=== PATIENT | female | born 1960 | race Caucasian/White ===

== ENCOUNTER → 2018-01-20 11:23 | Outpatient (CLI) | payer OTHER, SELFPAY ==
[2018-01-20 12:25] LABS: Alanine Aminotransferase 28 IU/L (9-52); Albumin 4.3 g/dL (3.5-5.0); Albumin Globulin Ratio 1.7 (1.0-2.8); Alkaline Phosphatase 69 U/L (38-126); Aspartate Aminotransferase 30 IU/L (14-36); BUN Creatinine Ratio 22.9 (6-22); Bilirubin Total 0.6 mg/dL (0.2-1.3); Blood Urea Nitrogen 16 mg/dL (7-17); Calcium 9.5 mg/dL (8.4-10.2); Carbon Dioxide 33 mmol/L (22-32); Chloride 103 mmol/L (98-107); Cholesterol 172 mg/dL (140-199); Estimated Glomerular Filt Rate > 60.0 mL/min (>60); Globulin 2.5 g/dL (1.7-4.1); Glucose 107 mg/dL (70-100); HDL Cholesterol 78 mg/dL (40-60); HEMOLYSIS < 15 (0-50); LDL Cholesterol Calculated 80 mg/dL (<100); Potassium 5.3 mmol/L (3.4-5.1); Sodium 142 mmol/L (137-145); Total Protein 6.8 g/dL (6.3-8.2); Triglycerides 69 mg/dL (35-150)
[2018-01-20 12:40] LABS: Free T3, Triiodothyronine Free 3.65 pg/mL (2.77-5.27); Free T4, Direct Thyroxine 0.73 ng/dL (0.78-2.19)
[2018-01-20 12:54] LABS: Thyroid Stimulating Hormone 1.14 uIU/mL (0.47-4.68)
== END ==
PROVIDERS: PCP Physician Assistant; Visit Provider Physician Assistant
DX: E03.9 Hypothyroidism, unspecified (principal); Z13.220 Encounter for screening for lipoid disorders; Z13.6 Encounter for screening for cardiovascular disorders
CPT/HCPCS: 36415; 80053; 80061; 84439; 84443; 84481

== ENCOUNTER → 2018-05-15 13:04 | Outpatient (CLI) | payer OTHER, SELFPAY ==
--- NOTE | 2018-05-16 16:18 | DIET.PN ---
Met for initial nutrition consultation. Pt desires assistance w/losing wt. Has tried many diets - lost a lot of wt and regained it back. Tried Wt Watchers, NutriSystem, etc. States MD suggested keto diet, but pt states she gets horrible hot flashes when eating high fat diet. Usual diet: Very little red meat - tries to eat more fish. Cheese is downfall. Eats a lot of whole foods - whole grains, vegs, etc. Does have few glasses of wine in [place] - plans to cut down on this. Exercise: Walks 1.5 hours most days; plans to join light resistance training class. Dx: Obesity Ht: 5'5 Wt 215# my scale BMI: 36 Wt Goal: 160# (Suggested 170# as this is wt pt has been at as an adult) Body comp Analysis ([employer]): (activity - ) body fat: 38.4% 82.5 fat# LBM: 132.4# Assessment: Pt appears knowledgeable of nutrition needs; wt loss techniques - needs motivation/assistant track coach and accountability. Barriers to wt control include emotional eating (olena snacking/prolonged dinner), living alone and eating w/TV vs having a sit down dinner. Intervention: Provided ed on healthy plate model, portioning foods, nutr balance. Discussed pros/cons of various diet techniques - keto, low carb. Encouraged to follow low carb plan Plan: Keep food/activity record (phone [place]) F/U 2 wk (15min check in). Body comp analysis in 4-6wk
== END ==
PROVIDERS: PCP Physician Assistant; Visit Provider Physician Assistant
DX: E66.9 Obesity, unspecified (principal)
CPT/HCPCS: 97802

== ENCOUNTER → 2018-05-29 13:33 | Outpatient (CLI) | payer OTHER, SELFPAY ==
--- NOTE | 2018-05-29 14:36 | DIET.PN ---
Addendum entered by Urszula Paul 06/06/18 15:45: Original Note: Met for first f/u consultation. Thuy reports she has tracked food intake on phone [place]; it helps. Has been eating </= 1700 kcals daily, very low carb- though not counting grams. States she's only hungry sometimes; eating planned snacks. Does not eat when hungry unless it's time to eat. Dx: obesity Wt: 210# Exercise: Added resistance class 2/week (45 ea) and continues to walk 1.5hr daily. Behavior changes: Working on not eating in front of TV - this is a challenge. Decreased wine & cheese intake. Assessment: Appears to be off to a good start. Lost 5# for 2.5#/wk loss. Intervention: Encouraged to become aware of hunger and satiety; to honor her hunger and eat when hungry; differentiating between hunger and appetite. Introduced to 15min rule. Plan: F/u 3 wks. body comp analysis
== END ==
PROVIDERS: PCP Physician Assistant; Visit Provider Physician Assistant
DX: E66.9 Obesity, unspecified (principal)
CPT/HCPCS: 97803

== ENCOUNTER → 2018-07-03 14:03 | Outpatient (CLI) | payer OTHER, SELFPAY ==
--- NOTE | 2018-07-03 14:05 | DI.MG.S_ITS ---
BILATERAL DIGITAL SCREENING MAMMOGRAM 3D/2D WITH CAD: 07/03/2018 CLINICAL: Routine screening. Family history of breast cancer. Comparison is made to exam dated: 12/27/2016 mammogram - [facility]. There are scattered fibroglandular elements in both breasts. Current study was also evaluated with a Computer Aided Detection (CAD) system. There are benign calcifications in both breasts. No significant masses, calcifications, or other findings are seen in either breast. There has been no significant interval change. IMPRESSION: There is no mammographic evidence of malignancy. A 1 year screening mammogram is recommended. This exam was interpreted at Station ID: [id number]. NOTE: For mammograms, a report in lay terms will be sent to the patient. Approximately 15% of breast malignancies will not be visualized mammographically. In the management of a palpable breast mass, a negative mammogram must not discourage biopsy of a clinically suspicious lesion. Electronically Signed By: Roland andre/alyce:07/03/2018 17:45:33 letter sent: Normal Exam ACR BI-RADS Category 2: Benign Finding(s) 3342F
== END ==
PROVIDERS: PCP Physician Assistant; Visit Provider Physician Assistant
DX: Z12.31 Encounter for screening mammogram for malignant neoplasm of breast (principal); Z80.3 Family history of malignant neoplasm of breast; Z78.0 Asymptomatic menopausal state; E28.39 Other primary ovarian failure; Z87.891 Personal history of nicotine dependence
CPT/HCPCS: 77063; 77067; 77080

== ENCOUNTER → 2018-12-13 10:37 | Outpatient (CLI) | payer SELFPAY ==
--- NOTE | 2018-12-13 10:43 | DI.US.S_ITS ---
PROCEDURE: US PELVIC COMPLETE INDICATIONS: BLOATING TECHNIQUE: Real-time scanning was performed of the pelvic organs, with image documentation. Additional endovaginal scanning was necessary due to incomplete visualization of the adnexal and endometrial structures by transabdominal scanning. COMPARISON: None. FINDINGS: Transabdominal scanning: Limited scanning through the kidneys shows no hydronephrosis. No pathologic free abdominal or pelvic fluid. Endovaginal scanning: Uterus: Uterus is normal in size at 5.8 x 3.8 x 2.4 cm. The endometrium measures 5.1 mm in combined thickness. 7 mm intramural fibroid. Ovaries: Ovaries are normal bilaterally measuring 1.7 x 1.4 x 1.1 cm on the right and 1.9 x 1.3 x 0.6 cm on the left. Minimal urinary bladder postvoid residual estimated at 11.0 cc. IMPRESSION: No source for pelvic bloating identified. Subcentimeter intramural fibroid. Dictated by: Jose DIAZ Interpreted: Kusum Ventura MD on 12/13/2018 at 12:54 Approved by: Kusum Ventura MD, PhD on 12/13/2018 at 14:45
== END ==
PROVIDERS: PCP Physician Assistant; Visit Provider Physician Assistant
DX: R14.0 Abdominal distension (gaseous) (principal); D25.1 Intramural leiomyoma of uterus; R12 Heartburn; R39.15 Urgency of urination; R68.81 Early satiety; R35.0 Frequency of micturition
CPT/HCPCS: 76856

== ENCOUNTER → 2020-05-19 11:14 | Outpatient (CLI) | payer OTHER, SELFPAY ==
[2020-05-19 13:13] LABS: Hematocrit 39.1 % (36-46); Hemoglobin 12.8 g/dL (12.0-16.0); Mean Corpuscular HGB Conc 32.7 % (30-36); Mean Corpuscular Hemoglobin 30.5 PG (26-34); Mean Corpuscular Volume 93.5 fL (80-100); Platelet Count 287 X10^3/uL (150-400); Red Blood Cell Count 4.18 X10^6/uL (4.0-5.2); Red Cell Distribution Width 14.3 % (11.6-14.8)
[2020-05-19 13:32] LABS: Alanine Aminotransferase 30 IU/L (<35); Albumin 4.4 g/dL (3.5-5.0); Albumin Globulin Ratio 1.6 (1.0-2.8); Alkaline Phosphatase 60 U/L (38-126); Aspartate Aminotransferase 36 IU/L (14-36); BUN Creatinine Ratio 26.8 (6-22); Bilirubin Total 0.8 mg/dL (0.2-1.3); Blood Urea Nitrogen 19 mg/dL (7-17); Calcium 9.5 mg/dL (8.4-10.2); Carbon Dioxide 35 mmol/L (22-32); Chloride 101 mmol/L (98-107); Cholesterol 196 mg/dL (140-199); Estimated Glomerular Filt Rate > 60.0 mL/min (>60); Globulin 2.8 g/dL (1.7-4.1); Glucose 106 mg/dL (80-110); HDL Cholesterol 71 mg/dL (40-60); HEMOLYSIS < 15 (0-50); LDL Cholesterol Calculated 98 mg/dL (<100); Potassium 4.3 mmol/L (3.4-5.1); Sodium 139 mmol/L (137-145); Total Protein 7.2 g/dL (6.3-8.2); Triglycerides 135 mg/dL (35-150)
[2020-05-19 15:49] LABS: TSH w/ Reflex to FT4 1.11 uIU/mL (0.47-4.68)
== END ==
PROVIDERS: PCP Registered Nurse Diabetes Educator; Referring Provider Registered Nurse Diabetes Educator; Visit Provider Registered Nurse Diabetes Educator
DX: Z00.00 Encounter for general adult medical examination without abnormal findings (principal); E03.9 Hypothyroidism, unspecified; R73.01 Impaired fasting glucose
CPT/HCPCS: 36415; 80053; 80061; 83036; 84443; 85027

== ENCOUNTER → 2020-05-26 14:11 | Outpatient (CLI) | payer OTHER, SELFPAY ==
--- NOTE | 2020-05-26 14:13 | DI.RAD.S_ITS ---
PROCEDURE: XR HIP W PEL IF DONE JULIO C 3TO4V COMPARISON: None. INDICATIONS: bilateral hip pain, no trauma FINDINGS: AP view of the pelvis and two views of the right and left hip show no fracture or dislocation. Both hips have minimal degenerative changes. Soft tissues are normal. IMPRESSION: Minimal degenerative changes of both hips. No acute abnormality. Dictated by: Minh Jarrett M.D. on 05/26/2020 at 14:32 Approved by: Minh Jarrett M.D. on 05/26/2020 at 14:34
== END ==
PROVIDERS: PCP Registered Nurse Diabetes Educator; Referring Provider Registered Nurse Diabetes Educator; Visit Provider Registered Nurse Diabetes Educator
DX: M25.551 Pain in right hip (principal); M25.552 Pain in left hip
CPT/HCPCS: 73522

== ENCOUNTER → 2020-06-16 16:23 | Outpatient (CLI) | payer OTHER, SELFPAY ==
--- NOTE | 2020-06-16 16:24 | DI.MG.S_ITS ---
BILATERAL DIGITAL SCREENING MAMMOGRAM 3D/2D WITH CAD: 06/16/2020 CLINICAL: Routine screening. Family history of breast cancer. Comparison is made to exams dated: 07/03/2018 mammogram, 12/27/2016 mammogram - [facility], and 10/18/2014 mammogram - [facility]. There are scattered fibroglandular elements in both breasts. Current study was also evaluated with a Computer Aided Detection (CAD) system. There are diffuse calcifications in both breasts. No significant masses, calcifications, or other findings are seen in either breast. There has been no significant interval change. IMPRESSION: BENIGN There is no mammographic evidence of malignancy. A 1 year screening mammogram is recommended. This exam was interpreted at Station ID: [id number]. NOTE: For mammograms, a report in lay terms will be sent to the patient. Approximately 15% of breast malignancies will not be visualized mammographically. In the management of a palpable breast mass, a negative mammogram must not discourage biopsy of a clinically suspicious lesion. Electronically Signed By: Roland rivera/:06/16/2020 17:51:37 letter sent: Normal Exam ACR BI-RADS Category 2: Benign Finding(s) 3342F
== END ==
PROVIDERS: PCP Registered Nurse Diabetes Educator; Referring Provider Registered Nurse Diabetes Educator; Visit Provider Registered Nurse Diabetes Educator
DX: Z12.31 Encounter for screening mammogram for malignant neoplasm of breast (principal); Z80.3 Family history of malignant neoplasm of breast
CPT/HCPCS: 77063; 77067

== ENCOUNTER → 2020-12-27 16:31 | Outpatient (CLI) | payer OTHER, SELFPAY ==
[2020-12-27 17:13] LABS: COVID19 -Nasal RAPID Negative (Negative)
== END ==
PROVIDERS: PCP Registered Nurse Diabetes Educator; Referring Provider Physician Assistant; Visit Provider Physician Assistant
DX: R05 Cough (principal); Z20.822 Contact with and (suspected) exposure to COVID-19
CPT/HCPCS: 87635

== ENCOUNTER → 2020-12-27 17:00 | Outpatient (CLI) | payer OTHER, SELFPAY ==
--- NOTE | 2020-12-27 17:02 | DI.RAD.S_ITS ---
PROCEDURE: XR CHEST 2V INDICATIONS: cough, pt concerned for PNA TECHNIQUE: 2 views of the chest were acquired. COMPARISON: None. FINDINGS: Surgical changes and devices: None. Lungs and pleura: Lungs are clear. No pleural effusions or pneumothorax. Mediastinum: Mediastinal contours are normal. Heart size is normal. Bones and chest wall: No suspicious bony abnormalities. Age-appropriate bony degenerative changes are seen. Accentuated thoracic kyphosis is seen. Soft tissues appear unremarkable. IMPRESSION: Clear lungs, without focal infiltrates. If there is clinical concern for a developing pulmonary process, a short-term followup chest series (with PA and lateral views, performed in deep inspiration) is suggested for further evaluation. Dictated by: Evens Arias M.D. on 12/27/2020 at 16:14 Approved by: Evens Arias M.D. on 12/27/2020 at 16:15
== END ==
PROVIDERS: PCP Registered Nurse Diabetes Educator; Referring Provider Physician Assistant; Visit Provider Physician Assistant
DX: R05 Cough (principal); Z20.822 Contact with and (suspected) exposure to COVID-19
CPT/HCPCS: 71046; 87635

== ENCOUNTER → 2021-02-10 08:32 | Outpatient (CLI) | payer OTHER, SELFPAY ==
[2021-02-10 09:16] LABS: Hematocrit 38.9 % (36-46); Hemoglobin 12.7 g/dL (12.0-16.0); Mean Corpuscular HGB Conc 32.6 % (30-36); Mean Corpuscular Hemoglobin 30.4 PG (26-34); Mean Corpuscular Volume 93.3 fL (80-100); Platelet Count 265 X10^3/uL (150-400); Red Blood Cell Count 4.17 X10^6/uL (4.0-5.2); Red Cell Distribution Width 14.6 % (11.6-14.8); White Blood Cell Count 6.7 X10^3/uL (4.5-11.0)
[2021-02-10 09:44] LABS: HEMOLYSIS 31 (0-50); Iron 62 ug/dL (37-170)
[2021-02-10 09:49] LABS: Alanine Aminotransferase 25 IU/L (<35); Albumin 4.2 g/dL (3.5-5.0); Albumin Globulin Ratio 1.7 (1.0-2.8); Alkaline Phosphatase 82 U/L (38-126); Aspartate Aminotransferase 33 IU/L (14-36); BUN Creatinine Ratio 30.2 (6-22); Bilirubin Total 0.4 mg/dL (0.2-1.3); Blood Urea Nitrogen 19 mg/dL (7-17); Calcium 9.2 mg/dL (8.4-10.2); Carbon Dioxide 30 mmol/L (22-32); Chloride 104 mmol/L (98-107); Estimated Glomerular Filt Rate > 60.0 mL/min (>60); Globulin 2.5 g/dL (1.7-4.1); Glucose 113 mg/dL (80-110); HEMOLYSIS 22 (0-50); Potassium 5.1 mmol/L (3.4-5.1); Sodium 139 mmol/L (137-145); Total Protein 6.7 g/dL (6.3-8.2)
[2021-02-10 10:01] LABS: Percent Iron Saturation 20 % (15-50); Total Iron Binding Capacity 315 ug/dL (265-497); Transferrin 247 mg/dL (206-381)
[2021-02-10 10:18] LABS: TSH w/ Reflex to FT4 1.52 uIU/mL (0.47-4.68)
[2021-02-10 10:26] LABS: Ferritin 37 ng/mL (11-264)
[2021-02-10 10:40] LABS: Vitamin B12 630 pg/mL (239-931)
== END ==
PROVIDERS: PCP Registered Nurse Diabetes Educator; Referring Provider Registered Nurse Diabetes Educator; Visit Provider Registered Nurse Diabetes Educator
DX: R53.83 Other fatigue (principal)
CPT/HCPCS: 36415; 80053; 82306; 82607; 82728; 83540; 83550; 84443; 85027

== ENCOUNTER → 2021-07-01 08:38 | Outpatient (CLI) | payer OTHER, SELFPAY ==
[2021-07-01 09:38] LABS: Hematocrit 40.3 % (36-46); Hemoglobin 13.2 g/dL (12.0-16.0); Mean Corpuscular HGB Conc 32.8 % (30-36); Mean Corpuscular Hemoglobin 29.7 PG (26-34); Mean Corpuscular Volume 90.4 fL (80-100); Platelet Count 275 X10^3/uL (150-400); Red Blood Cell Count 4.45 X10^6/uL (4.0-5.2); Red Cell Distribution Width 14.3 % (11.6-14.8); White Blood Cell Count 5.1 X10^3/uL (4.5-11.0)
[2021-07-01 09:55] LABS: Erythrocyte Sedimentation Rate 8 MM/HR (0-20)
[2021-07-01 11:14] LABS: HEMOLYSIS < 15 (0-50); Iron 64 ug/dL (37-170)
[2021-07-01 11:20] LABS: Alanine Aminotransferase 22 IU/L (<35); Albumin 4.3 g/dL (3.5-5.0); Albumin Globulin Ratio 1.7 (1.0-2.8); Alkaline Phosphatase 69 U/L (38-126); Aspartate Aminotransferase 30 IU/L (14-36); BUN Creatinine Ratio 20.5 (6-22); Bilirubin Total 0.5 mg/dL (0.2-1.3); Blood Urea Nitrogen 16 mg/dL (7-17); C-Reactive Protein Quant < 0.5 mg/dL (<1.0); Calcium 9.2 mg/dL (8.4-10.2); Carbon Dioxide 31 mmol/L (22-32); Chloride 104 mmol/L (98-107); Estimated Glomerular Filt Rate > 60.0 mL/min (>60); Globulin 2.6 g/dL (1.7-4.1); Glucose 114 mg/dL (80-110); HEMOLYSIS < 15 (0-50); Potassium 4.8 mmol/L (3.4-5.1); Sodium 141 mmol/L (137-145); Total Protein 6.9 g/dL (6.3-8.2)
[2021-07-01 11:27] LABS: Percent Iron Saturation 21 % (15-50); Total Iron Binding Capacity 304 ug/dL (265-497); Transferrin 239 mg/dL (206-381)
[2021-07-01 11:32] LABS: Vitamin D 25 Hydroxy (D3) 21.6 ng/mL (30.0-100.0)
[2021-07-01 11:51] LABS: TSH w/ Reflex to FT4 1.26 uIU/mL (0.47-4.68)
[2021-07-01 11:53] LABS: Ferritin 31 ng/mL (11-264)
[2021-07-01 12:08] LABS: Vitamin B12 > 1000 pg/mL (239-931)
[2021-07-01 13:26] LABS: Appearance Urine UA CLEAR; Bilirubin Urine UA NEGATIVE (NEGATIVE); Color Urine UA YELLOW; Glucose Urine UA NEGATIVE (Negative); Ketones Urine UA NEGATIVE (NEGATIVE); Leukocyte Esterase Urine UA TRACE (NEGATIVE); Nitrite Urine UA NEGATIVE (Negative); Occult Blood Urine UA TRACE-INTACT (Negative); Protein Urine UA NEGATIVE (Negative); Specific Gravity Urine UA 1.015 (1.000-1.035); Urobilinogen Urine UA 0.2 E.U./dL (0.2)
[2021-07-01 13:34] LABS: Bacteria Urine None Seen; Culture Indicated Urine Cult Not Indicated; RBC Urine None Seen (0-5/HPF); Urine Comments Microscopic Normal; WBC Urine None Seen (0-5/HPF)
[2021-07-02 07:40] LABS: Adrenocorticotropic Hormone 19.6 pg/mL (7.2-63.3)
[2021-07-03 17:48] LABS: ANA Screen, IFA Negative (.)
== END ==
PROVIDERS: PCP Registered Nurse Diabetes Educator; Referring Provider Registered Nurse Diabetes Educator; Visit Provider Registered Nurse Diabetes Educator
DX: R53.83 Other fatigue (principal)
CPT/HCPCS: 36415; 80053; 81001; 82024; 82306; 82533; 82607; 82728; 83540; 83550; 84443; 85027; 85651; 86038; 86140

== ENCOUNTER → 2021-07-04 11:53 | Outpatient (CLI) | payer OTHER, SELFPAY | PROVIDERS: PCP Registered Nurse Diabetes Educator; Visit Provider Nurse Practitioner Family | DX: R53.83 Other fatigue (principal) | CPT/HCPCS: 87086 ==

== ENCOUNTER → 2021-07-04 14:57 | Outpatient (CLI) | payer OTHER, SELFPAY ==
--- NOTE | 2021-07-04 15:00 | DI.MG.S_ITS ---
BILATERAL DIGITAL SCREENING MAMMOGRAM 3D/2D WITH CAD: 07/04/2021 CLINICAL: Routine screening. Comparison is made to exams dated: 06/16/2020 mammogram, 07/03/2018 mammogram, and 12/27/2016 mammogram - [facility]. There are scattered fibroglandular elements in both breasts. Current study was also evaluated with a Computer Aided Detection (CAD) system. There are benign calcifications in both breasts. No significant masses, calcifications, or other findings are seen in either breast. There has been no significant interval change. IMPRESSION: BENIGN There is no mammographic evidence of malignancy. A 1 year screening mammogram is recommended. This exam was interpreted at Station ID: [id number]. NOTE: For mammograms, a report in lay terms will be sent to the patient. Approximately 15% of breast malignancies will not be visualized mammographically. In the management of a palpable breast mass, a negative mammogram must not discourage biopsy of a clinically suspicious lesion. Electronically Signed By: Stephanie phillips/alyce:07/06/2021 09:09:57 letter sent: Normal Exam ACR BI-RADS Category 2: Benign Finding(s) 3342F
== END ==
PROVIDERS: PCP Registered Nurse Diabetes Educator; Referring Provider Registered Nurse Diabetes Educator; Visit Provider Registered Nurse Diabetes Educator
DX: Z12.31 Encounter for screening mammogram for malignant neoplasm of breast (principal)
CPT/HCPCS: 77063; 77067

== ENCOUNTER → 2021-10-12 09:59 | Outpatient (CLI) | payer OTHER, SELFPAY ==
[2021-10-12 12:32] LABS: Free T3, Triiodothyronine Free 3.67 pg/mL (2.77-5.27); Free T4, Direct Thyroxine 1.14 ng/dL (0.78-2.19)
[2021-10-12 12:46] LABS: Thyroid Stimulating Hormone 0.751 uIU/mL (0.47-4.68)
== END ==
PROVIDERS: PCP Registered Nurse Diabetes Educator; Referring Provider Registered Nurse Diabetes Educator; Visit Provider Registered Nurse Diabetes Educator
DX: E03.9 Hypothyroidism, unspecified (principal); R53.83 Other fatigue
CPT/HCPCS: 36415; 82306; 84439; 84443; 84481

== ENCOUNTER → 2021-11-16 09:55 | Outpatient (CLI) | payer OTHER, SELFPAY | PROVIDERS: Family Provider Registered Nurse Diabetes Educator; PCP Registered Nurse Diabetes Educator; Referring Provider Registered Nurse Diabetes Educator; Visit Provider Registered Nurse Diabetes Educator ==

== ENCOUNTER → 2021-11-18 10:08 | Outpatient (CLI) | payer OTHER, SELFPAY ==
--- NOTE | 2021-11-18 10:08 | DI.NM.S_ITS ---
PROCEDURE: NM BALJIT PERF SPECT REST & STR Rest and exercise myocardial perfusion SPECT with gated imaging and ejection fraction RADIOPHARMACEUTICAL: 25.9 mCi Tc-99m sestamibi IV at rest and 25.8 mCi Tc-99m sestamibi IV at peak exercise. A two day-protocol was performed. INDICATIONS: eval dyspnea on exertion, atypical CP TECHNIQUE: Radiopharmaceutical was injected at peak stress test, and also at rest. SPECT images were obtained. SPECT myocardial perfusion images were displayed in short axis, horizontal long axis, and vertical long axis views. Gated images were reviewed using WaveCheck software. COMPARISON: None. CARDIAC STRESS: A standard Leonid treadmill exercise tolerance test was performed by the patient under the supervision of an attending staff. The patient exercised for 5 minutes and 48 seconds; functional aerobic impairment (EDDIE) is +15%. Hemodynamic data: There is normal blood pressure and heart rate response to exercise stress. Patient achieved 98% of maximum predicted heart rate at peak exercise. Symptoms: Patient denied chest pain during exercise. EKG: No diagnostic EKG changes of ischemia; no ectopy. FINDINGS: Raw data: There is good myocardial labeling by radiotracer. No significant motion artifacts. Wptt-fm-ehjbh ratio is 0.35 (normal is less than 0.38 for sestamibi tracer, and less than 0.50 for thallium tracer). Left ventricle function: Gated images demonstrate normal left ventricle wall thickening. No segmental wall motion abnormality. No transient ischemic dilation; TID is 1.08 (normal less than 1.3). The left ventricle resting end-diastolic volume is 104 mL. Left ventricle stress ejection fraction is 64%; normal values are above 45%. Myocardial perfusion: There is normal distribution of activity in the left and right ventricular myocardium. No fixed or reversible perfusion defects. IMPRESSION: Low risk, normal treadmill nuclear stress test 1) No perfusion evidence of ischemia or infarction. 2) Normal left ventricular size, wall motion, and systolic function (EF post stress 64%). 3) No diagnostic ST changes with exercise. 4) No angina during the study. 5) Mildly reduced exercise tolerance (7.0 METs, EDDIE +15%). Target heart rate achieved. Appropriate BP response to exercise. Dictated by: Romeo Stovall MD on 11/19/2021 at 16:45 Approved by: Romeo Stovall MD on 11/19/2021 at 16:47
[2021-11-18 12:07] LABS: COVID19 -Nasal RAPID Negative (Negative)
--- NOTE | 2021-11-19 09:09 | P.PCN_ITS ---
Cardiac Stress Test Report Referral & Results Date Patient Seen: 11/19/21 Time Patient Seen: 09:00 Requesting provider: Juanpablo Urbano Indication: Dyspnea on exertion Rest ECG: Normal sinus rhythm Procedure Note: Today, following both written and verbal informed consent, the patient was exercised according to a standard Leonid protocol. The patient went for a total of 5 minutes 48 seconds achieving a maximum heart rate of 156 maximum systolic blood pressure of 190. This is approximately 7.0 METs. Exercise was terminated at this point because of fatigue. Patient was also given Cardiolite through a previously started Hep-Lock IV by the nuclear equipment sales engineer approximately 1 minute prior to the cessation of exercise. Exaggerated hemodynamic response to exercise. [address] deviations in inferior leads that resolved rapidly with rest. Average exercise capacity for sedentary person at her age, but FA I +15% on active scale. No signs or symptoms of angina. No other change in rhythm. Impression: Intermediate probability for ischemia. Perfusion imaging pending. Please note: Actual ECG tracings can be found in the PACS system.
== END ==
PROVIDERS: Family Provider Registered Nurse Diabetes Educator; PCP Registered Nurse Diabetes Educator; Referring Provider Registered Nurse Diabetes Educator; Visit Provider Registered Nurse Diabetes Educator
DX: R06.00 Dyspnea, unspecified (principal); R07.89 Other chest pain; Z20.822 Contact with and (suspected) exposure to COVID-19
CPT/HCPCS: 78452; 87635; 93016; 93017; 93018; A9502

== ENCOUNTER → 2021-12-10 10:10 | Outpatient (CLI) | payer OTHER, SELFPAY ==
--- NOTE | 2021-12-10 10:11 | DI.RAD.S_ITS ---
PROCEDURE: XR CHEST 2V INDICATIONS: shortness of breath on exertion TECHNIQUE: 2 views of the chest were acquired. COMPARISON: [facility], CR, XR CHEST 2V, 12/27/2020, 16:58. FINDINGS: Surgical changes and devices: None. Lungs and pleura: Lungs are clear. No pleural effusions or pneumothorax. Mediastinum: Mediastinal contours are normal. Heart size is normal. Bones and chest wall: No suspicious bony abnormalities. Soft tissues appear unremarkable. IMPRESSION: Normal chest plain films. Dictated by: Evens Arias M.D. on 12/10/2021 at 11:48 Approved by: Evens Arias M.D. on 12/10/2021 at 11:49
== END ==
PROVIDERS: Family Provider Registered Nurse Diabetes Educator; PCP Registered Nurse Diabetes Educator; Referring Provider Registered Nurse Diabetes Educator; Visit Provider Registered Nurse Diabetes Educator
DX: R06.09 Other forms of dyspnea (principal)
CPT/HCPCS: 71046

== ENCOUNTER → 2022-03-24 10:08 | Outpatient (CLI) | payer OTHER, SELFPAY ==
[2022-03-24 12:43] LABS: Occult Blood 1 Negative (Negative)
[2022-03-24 12:44] LABS: Occult Blood 2 Negative (Negative); Occult Blood 3 Negative (Negative)
== END ==
PROVIDERS: Family Provider Registered Nurse Diabetes Educator; PCP Registered Nurse Diabetes Educator; Referring Provider Registered Nurse Diabetes Educator; Visit Provider Registered Nurse Diabetes Educator
DX: K92.1 Melena (principal)
CPT/HCPCS: 82270

== ENCOUNTER → 2022-07-16 08:09 | Outpatient (CLI) | payer OTHER, SELFPAY ==
[2022-07-16 09:47] LABS: Hematocrit 37.7 % (36-46); Hemoglobin 12.3 g/dL (12.0-16.0); Mean Corpuscular HGB Conc 32.7 % (30-36); Mean Corpuscular Volume 91.8 fL (80-100); Platelet Count 271 X10^3/uL (150-400); Red Blood Cell Count 4.11 X10^6/uL (4.0-5.2); Red Cell Distribution Width 15.2 % (11.6-14.8); White Blood Cell Count 6.4 X10^3/uL (4.5-11.0)
[2022-07-16 09:57] LABS: Hemoglobin A1C% w Est Avg Glu 5.8 % (4.0-6.0)
[2022-07-16 10:33] LABS: Alanine Aminotransferase 36 IU/L (<35); Albumin 4.2 g/dL (3.5-5.0); Albumin Globulin Ratio 1.6 (1.0-2.8); Alkaline Phosphatase 88 U/L (38-126); Aspartate Aminotransferase 30 IU/L (14-36); BUN Creatinine Ratio 23.6 (6-22); Bilirubin Total 0.4 mg/dL (0.2-1.3); Blood Urea Nitrogen 17 mg/dL (7-17); Calcium 8.9 mg/dL (8.4-10.2); Carbon Dioxide 32 mmol/L (22-32); Chloride 100 mmol/L (98-107); Cholesterol 182 mg/dL (140-199); Estimated Glomerular Filt Rate > 60 mL/min (>60); Globulin 2.7 g/dL (1.7-4.1); Glucose 105 mg/dL (80-110); HDL Cholesterol 61 mg/dL (40-60); HEMOLYSIS < 15 (0-50); LDL Cholesterol Calculated 90 mg/dL (<100); Potassium 4.7 mmol/L (3.4-5.1); Sodium 140 mmol/L (137-145); Total Protein 6.9 g/dL (6.3-8.2); Triglycerides 157 mg/dL (35-150)
[2022-07-16 10:59] LABS: TSH w/ Reflex to FT4 0.91 uIU/mL (0.47-4.68)
--- NOTE | 2022-07-16 15:51 | DI.MG.S_ITS ---
BILATERAL DIGITAL SCREENING MAMMOGRAM 3D/2D WITH CAD: 07/16/2022 CLINICAL: Routine screening. Family history of breast cancer. Comparison is made to exams dated: 07/04/2021 mammogram, 06/16/2020 mammogram, 07/03/2018 mammogram, and 12/27/2016 mammogram - [facility]. There are scattered areas of fibroglandular density in both breasts (category b / 25%-50% glandular tissue). Current study was also evaluated with a Computer Aided Detection (CAD) system. There are benign calcifications in both breasts. No significant masses, calcifications, or other findings are seen in either breast. There has been no significant interval change. IMPRESSION: BENIGN There is no mammographic evidence of malignancy. A 1 year screening mammogram is recommended. Based on the Tyrer Cuzick model (a risk assessment model) the patient's lifetime risk is 6.1% and her 10 year risk is 2.7%. According to the ACR, ACS, and NCCN guidelines, an annual breast MRI exam along with mammogram is recommended if the patient's lifetime risk is 20% or greater. This exam was interpreted at Station ID: [id number]. NOTE: For mammograms, a report in lay terms will be sent to the patient. Approximately 15% of breast malignancies will not be visualized mammographically. In the management of a palpable breast mass, a negative mammogram must not discourage biopsy of a clinically suspicious lesion. Electronically Signed By: Emely perry/alyce:07/16/2022 17:38:35 letter sent: Normal Exam ACR BI-RADS Category 2: Benign Finding(s) 3342F
== END ==
PROVIDERS: Family Provider Registered Nurse Diabetes Educator; PCP Registered Nurse Diabetes Educator; Referring Provider Registered Nurse Diabetes Educator; Visit Provider Registered Nurse Diabetes Educator
DX: Z12.31 Encounter for screening mammogram for malignant neoplasm of breast (principal); E03.9 Hypothyroidism, unspecified; R73.01 Impaired fasting glucose; Z80.3 Family history of malignant neoplasm of breast
CPT/HCPCS: 36415; 77063; 77067; 80053; 80061; 83036; 84443; 85027

== ENCOUNTER → 2022-07-26 16:40 | Outpatient (CLI) | payer OTHER, SELFPAY ==
[2022-07-26 18:08] LABS: Iron 101 ug/dL (37-170)
[2022-07-26 18:16] LABS: C-Reactive Protein Quant 0.8 mg/dL (<1.0)
[2022-07-26 18:20] LABS: Total Iron Binding Capacity 349 ug/dL (265-497)
[2022-07-26 18:49] LABS: Ferritin 24 ng/mL (11-264)
== END ==
PROVIDERS: Family Provider Registered Nurse Diabetes Educator; PCP Registered Nurse Diabetes Educator; Referring Provider Internal Medicine Sleep Medicine; Visit Provider Internal Medicine Sleep Medicine
DX: G25.81 Restless legs syndrome (principal); E83.10 Disorder of iron metabolism, unspecified
CPT/HCPCS: 36415; 82728; 83540; 83550; 86140

== ENCOUNTER → 2022-10-20 09:29 | Outpatient (CLI) | payer OTHER, SELFPAY ==
[2022-10-20 11:38] LABS: HEMOLYSIS < 15 (0-50); Iron 66 ug/dL (37-170)
[2022-10-20 11:41] LABS: C-Reactive Protein Quant 0.8 mg/dL (<1.0)
[2022-10-20 11:43] LABS: Alanine Aminotransferase 35 IU/L (<35); Albumin Globulin Ratio 1.5 (1.0-2.8); Alkaline Phosphatase 76 U/L (38-126); Aspartate Aminotransferase 30 IU/L (14-36); Bilirubin Total 0.4 mg/dL (0.2-1.3); Bilirubin Unconjugated 0.4 mg/dL (0.0-1.1); Globulin 2.6 g/dL (1.7-4.1); HEMOLYSIS < 15 (0-50); Total Protein 6.6 g/dL (6.3-8.2)
[2022-10-20 11:51] LABS: Percent Iron Saturation 21 % (15-50); Total Iron Binding Capacity 307 ug/dL (265-497); Transferrin 208 mg/dL (206-381)
[2022-10-20 12:14] LABS: Ferritin 37 ng/mL (11-264)
== END ==
PROVIDERS: Family Provider Registered Nurse Diabetes Educator; PCP Registered Nurse Diabetes Educator; Referring Provider Internal Medicine Sleep Medicine; Visit Provider Internal Medicine Sleep Medicine
DX: G25.81 Restless legs syndrome (principal); E83.10 Disorder of iron metabolism, unspecified; R74.8 Abnormal levels of other serum enzymes
CPT/HCPCS: 36415; 80076; 82728; 83540; 83550; 86140

== ENCOUNTER → 2022-11-12 15:42 | Outpatient (CLI) | payer OTHER, SELFPAY ==
--- NOTE | 2022-11-12 15:43 | DI.US.S_ITS ---
PROCEDURE: US ABDOMEN LIMITED INDICATIONS: ELEVATED ALT TECHNIQUE: Real-time scanning was performed of the abdominal and retroperitoneal organs, with image documentation. COMPARISON: None. FINDINGS: Liver: The liver measures 18.6 cm in length and demonstrates increased echogenicity. Focal fatty sparing is noted at the gallbladder fossa. Gallbladder: The gallbladder wall measures 3.5 mm in diameter. No stones, sludge, pericholecystic fluid, or sonographic Rolle sign. Biliary ducts: Intrahepatic bile ducts are non-dilated. Extrahepatic bile duct caliber measures 5.5 mm. Normal is 6-7 mm or less in diameter, or 10 mm or less post-cholecystectomy. Pancreas: Pancreas is poorly characterized. IMPRESSION: 1. Increased hepatic echogenicity noted likely related to fatty infiltration of the liver but other sources of hepatocellular disease cannot be excluded. 2. No cholelithiasis or findings to suggest choledocholithiasis or acute cholecystitis. Dictated by: Emely French M.D. on 11/12/2022 at 18:11 Approved by: Emely French M.D. on 11/12/2022 at 18:15
== END ==
PROVIDERS: Family Provider Registered Nurse Diabetes Educator; PCP Registered Nurse Diabetes Educator; Referring Provider Registered Nurse Diabetes Educator; Visit Provider Registered Nurse Diabetes Educator
DX: R74.8 Abnormal levels of other serum enzymes (principal)
CPT/HCPCS: 76705

== ENCOUNTER → 2022-11-19 08:27 | Outpatient (CLI) | payer OTHER, SELFPAY ==
[2022-11-22 20:27] LABS: Hepatitis B Surface Antigen NEGATIVE s/c (NEGATIVE)
[2022-11-22 20:46] LABS: Hep C Virus Ab w/Reflex Quant NEGATIVE s/c (NEGATIVE)
== END ==
PROVIDERS: Family Provider Registered Nurse Diabetes Educator; PCP Registered Nurse Diabetes Educator; Referring Provider Registered Nurse Diabetes Educator; Visit Provider Registered Nurse Diabetes Educator
DX: R74.8 Abnormal levels of other serum enzymes (principal)
CPT/HCPCS: 36415; 86803; 87340

== ENCOUNTER → 2022-11-25 09:06 | Outpatient (CLI) | payer OTHER, SELFPAY ==
[2022-11-25 11:21] LABS: Add Manual Diff / Slide Review NO; Basophils Absolute Auto 100 /uL (0-100); Basophils Percent Auto 0.9 % (0-2); Eosinophils Absolute Auto 200 /uL (0-450); Eosinophils Percent Auto 2.6 % (2-4); Hematocrit 37.5 % (36-46); Hemoglobin 12.7 g/dL (12.0-16.0); Lymphocytes Absolute Auto 2000 /uL (1100-4500); Lymphocytes Percent Auto 32.7 % (25-40); Mean Corpuscular HGB Conc 33.9 % (30-36); Mean Corpuscular Hemoglobin 31.1 PG (26-34); Mean Corpuscular Volume 91.7 fL (80-100); Monocytes Absolute Auto 400 /uL (0-900); Monocytes Percent Auto 6.5 % (3-14); Neutrophils Absolute Auto 3500 /uL (1500-7000); Neutrophils Percent Auto 57.3 % (50-75); Platelet Count 267 X10^3/uL (150-400); Red Blood Cell Count 4.09 X10^6/uL (4.0-5.2); White Blood Cell Count 6.1 X10^3/uL (4.5-11.0)
== END ==
PROVIDERS: Family Provider Registered Nurse Diabetes Educator; PCP Registered Nurse Diabetes Educator; Referring Provider Nurse Practitioner Family; Visit Provider Nurse Practitioner Family
DX: R53.83 Other fatigue (principal)
CPT/HCPCS: 36415; 85025

== ENCOUNTER → 2022-11-29 11:00 | Outpatient (CLI) | payer OTHER, SELFPAY ==
[2022-11-29 12:38] LABS: Occult Blood 1 Negative (Negative); Occult Blood 2 Negative (Negative); Occult Blood 3 Positive (Negative)
== END ==
PROVIDERS: Family Provider Registered Nurse Diabetes Educator; PCP Registered Nurse Diabetes Educator; Referring Provider Nurse Practitioner Family; Visit Provider Nurse Practitioner Family
DX: K92.1 Melena (principal)
CPT/HCPCS: 82270

== ENCOUNTER → 2022-12-28 16:04 | Outpatient (CLI) | payer OTHER, SELFPAY ==
[2022-12-28 18:12] LABS: Vitamin B12 Reflex MMA if <400 768 pg/mL (239-931)
== END ==
PROVIDERS: Family Provider Registered Nurse Diabetes Educator; PCP Registered Nurse Diabetes Educator; Referring Provider Registered Nurse Diabetes Educator; Visit Provider Registered Nurse Diabetes Educator
DX: R20.2 Paresthesia of skin (principal)
CPT/HCPCS: 36415; 82607

== ENCOUNTER → 2023-01-01 10:45 | Outpatient (CLI) | payer OTHER, SELFPAY ==
--- NOTE | 2023-01-01 10:46 | DI.MRI.S_ITS ---
PROCEDURE: MR HEAD/BRAIN WO/W CON INDICATIONS: eval BLE paresthesias, gait disturbance TECHNIQUE: Noncontrast axial T1 spin echo, axial T2 fast spin echo, sagittal and axial FLAIR, coronal T2 fast spin echo, axial gradient echo, axial diffusion and ADC through the brain. After the administration of contrast, axial and coronal and sagittal T1 spin echo with fat saturation through the brain. COMPARISON: None. FINDINGS: Image quality: Excellent. CSF spaces: Basal cisterns are patent. No extra-axial fluid collections. Ventricles are normal in size and shape. Brain: No midline shift. No intracranial bleeds or masses. No abnormal intracranial enhancement. There is cerebral volume loss for age. There is age-appropriate mild periventricular white matter chronic small vessel ischemic change. The brainstem appears normal. Diffusion-weighted images demonstrate no acute ischemic insults. No chronic ischemic insults. Normal intravascular flow voids are present. Skull and face: Calvarial marrow is normal in signal. Orbits appear normal. Sinuses: Sinuses and mastoids appear clear. IMPRESSION: Age-appropriate findings. Mild small vessel ischemic change. No acute intracranial process. Dictated by: Gabe Good M.D. on 01/03/2023 at 11:24 Approved by: Gabe Good M.D. on 01/03/2023 at 11:26
== END ==
PROVIDERS: Family Provider Registered Nurse Diabetes Educator; PCP Registered Nurse Diabetes Educator; Referring Provider Registered Nurse Diabetes Educator; Visit Provider Registered Nurse Diabetes Educator
DX: R20.2 Paresthesia of skin (principal); R26.9 Unspecified abnormalities of gait and mobility
CPT/HCPCS: 70553; A9579

== ENCOUNTER 2023-02-03 10:00 | Outpatient (RCR) | payer OTHER, SELFPAY ==
--- NOTE | 2022-12-03 11:35 | PT.OIE ---
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 Email: [email or web address] Therapy Initial Evaluation PT-OP-A Visit Information Start: 12/03/22 10:44 Freq: Status: Active Protocol: Document 12/03/22 10:44 ED (Rec: 12/03/22 11:35 ED [id number]) Out-Patient Physical Therapy Visit Information Visit Information Visit Type Initial Evaluation Visit Note 1 Visit Start Time 10:45 Visit Stop Time 11:30 Visit Number 1 Evaluation Information Evaluation Date 12/03/22 PT-OP-B Current Condition Start: 12/03/22 10:44 Freq: Status: Active Protocol: Document 12/03/22 10:44 ED (Rec: 12/03/22 11:35 ED [id number]) Current Condition History of Current Condition Onset Date October 2022 History of Current Condition Pt states that sometime in September that she was really busy one weekend and was using wheelbarrow a lot and has had lingering pain/soreness since then. She used the wheelbarrow whlie it was behind her so both her shoulders were in an extended position for a majority of the time she was working. She notes that the L is probably worse than the R. She states that her ROM is limited. She points towards the anterior portion of her shoulder and slightly down her bicep. She states she has a gym membership but she doesn't go. Additionally, she has 3# dumbbells at home that she can utilize. PT-OP-C Subjective Start: 12/03/22 10:44 Freq: Status: Active Protocol: Document 12/03/22 10:44 ED (Rec: 12/03/22 11:35 ED [id number]) OP-PT Subjective Patient Comments Patient Comments pain in both shoulders located anteriorly. Pain not very consistent and is position dependent. Is not limiting her in normal daily activities Patient Questionnaires Quick Dash- Upper Extremity Quick Dash UE Score 50 Quick Dash UE Impairment 40 to 59% Impaired (Score 40- 59) PT-OP-K Range of Motion Start: 12/03/22 10:44 Freq: Status: Active Protocol: Document 12/03/22 10:44 ED (Rec: 12/03/22 11:35 ED [id number]) Shoulder Goniometric Range of Motion Shoulder Right Active Flexion 135 Abduction 125 Internal Rotation Behind Back (text) above belt line (hesitant to perform) Left Active Flexion 145 Abduction 130 Internal Rotation Behind Back (text) above belt line (hesitant to perform) PT-OP-Q Treatments Start: 12/03/22 10:44 Freq: Status: Active Protocol: Document 12/03/22 10:44 ED (Rec: 12/03/22 11:35 ED [id number]) Therapeutic Exercises Standing Exercises row Side bilateral Equipment Used GTB Reps/Minutes 2x20 wall slides Side bilateral Reps/Minutes 2x20 ER Side bilateral Reps/Minutes 15'' isometric against wall scaption raise Side bilateral Resistance 1-3# Reps/Minutes 1x15 or 20-30 second hold Comments unable to perform abduction c/ 3# secondary to pain; able to perform c/ 2# PT-OP-T Assessment and Plan Start: 12/03/22 10:44 Freq: Status: Active Protocol: Document 12/03/22 10:44 ED (Rec: 12/03/22 11:35 ED [id number]) Physical Therapy Assessment Rehab Potential Rehabilitation Potential Good Evaluation Complexity Number of Personal Factors/Comorbidities 1-2 Number of Body Systems Impaired 1-2 Clinical Presentation at Evaluation Stable Impairments Impairments Functional Activities,Pain,ROM ,Strength Goals Three Impairment Pain Short Term Goal (STG) pt will report 25% improvement in shoulder pain. STG Duration 3 weeks Manager Integration Goal (LTG) Pt will report 50% improvement in shoulder pain. LTG Duration 6 weeks Two Impairment ROM Short Term Goal (STG) Pt will demonstrate 150 degrees AROM flexion bilaterally c/o pain. STG Duration 3 weeks Alf Goal (LTG) Pt will demonstrate 140 degrees AROM abduction bilaterally c/o pain. LTG Duration 6 weeks One Impairment HEP Short Term Goal (STG) Pt will report performing HEP 3x/week. STG Duration 2 weeks. Manager Integration Goal (LTG) Pt will report performing HEP 3x/week. LTG Duration 6 weeks Assessment Summary Assessment Pt reported to Pt c/ complaints of chronic B shoulder pain that occurred in October 2022 after using a wheelbarrow heavily that was positioned behind her. Pt demonstrated reduced AROM bilaterally c/ the R UE being slightly worse than the L. During MMT, patient had pain during active ER more so than other movement patterns; pain was located anteriorly. PT provided patient initial HEP of : wall slides, ER isometrics against wall, shoulder scaption raises, and banded rows. Pt able to perform all movements c/o pain . Physical Therapy Plan Frequency and Duration Frequency of Treatment 2x/Week Duration of treatment (weeks) 8 Plan of Care Start Date 12/03/22 Plan of Care End Date 03/03/23 Therapeutic Interventions Therapeutic Interventions Home Exercise Program,Joint Mobilizations,Manual Therapy, Neuromuscular Re-education, Taping,Therapeutic Activities, Therapeutic Exercises Modalities Cold Pack/Ice Massage,Electric Stimulation,Hot Packs, Ultrasound Next Visit Focus/Plan Next Note Type Treatment Note Next Visit Plan pulleys, review HEP (wall slides, rows, scaption, ER iso 's), modified plank, bicep curl
--- NOTE | 2022-12-03 11:35 | PT.OPPOC ---
Physical, Occupational & Speech Therapy At 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 Plan Of Care PT-OP-T Assessment and Plan Start: 12/03/22 10:44 Freq: Status: Active Protocol: Document 12/03/22 10:44 ED (Rec: 12/03/22 11:35 ED [id number]) Physical Therapy Assessment Rehab Potential Rehabilitation Potential Good Evaluation Complexity Number of Personal Factors/Comorbidities 1-2 Number of Body Systems Impaired 1-2 Clinical Presentation at Evaluation Stable Impairments Impairments Functional Activities,Pain,ROM ,Strength Goals Three Impairment Pain Short Term Goal (STG) pt will report 25% improvement in shoulder pain. STG Duration 3 weeks Jail Goal (LTG) Pt will report 50% improvement in shoulder pain. LTG Duration 6 weeks Two Impairment ROM Short Term Goal (STG) Pt will demonstrate 150 degrees AROM flexion bilaterally c/o pain. STG Duration 3 weeks User Support Analyst Goal (LTG) Pt will demonstrate 140 degrees AROM abduction bilaterally c/o pain. LTG Duration 6 weeks One Impairment HEP Short Term Goal (STG) Pt will report performing HEP 3x/week. STG Duration 2 weeks. User Support Analyst Goal (LTG) Pt will report performing HEP 3x/week. LTG Duration 6 weeks Assessment Summary Assessment Pt reported to Pt c/ complaints of chronic B shoulder pain that occurred in October 2022 after using a wheelbarrow heavily that was positioned behind her. Pt demonstrated reduced AROM bilaterally c/ the R UE being slightly worse than the L. During MMT, patient had pain during active ER more so than other movement patterns; pain was located anteriorly. PT provided patient initial HEP of : wall slides, ER isometrics against wall, shoulder scaption raises, and banded rows. Pt able to perform all movements c/o pain . Physical Therapy Plan Frequency and Duration Frequency of Treatment 2x/Week Duration of treatment (weeks) 8 Plan of Care Start Date 12/03/22 Plan of Care End Date 03/03/23 Therapeutic Interventions Therapeutic Interventions Home Exercise Program,Joint Mobilizations,Manual Therapy, Neuromuscular Re-education, Taping,Therapeutic Activities, Therapeutic Exercises Modalities Cold Pack/Ice Massage,Electric Stimulation,Hot Packs, Ultrasound Next Visit Focus/Plan Next Note Type Treatment Note Next Visit Plan pulleys, review HEP (wall slides, rows, scaption, ER iso 's), modified plank, radhaep curl Plan of Care Dates Plan of Care Start Date 12/03/22 Plan of Care End Date 03/03/23 Electronically Signed by: Paolo Romero, PT 12/03/22 9267 If you are in agreement with this Plan of Care, please return a signed and dated copy. I have reviewed this Plan of Care and certify that the skilled therapy services above are required to meet the patient?s needs. Physician Signature Date Printed Name and Credentials Clinical Instructor Signature Printed Name and Credentials
--- NOTE | 2022-12-07 11:24 | PT.OTN ---
Current Diagnoses Pain in right shoulder (12/07/22) Pain in left shoulder (12/07/22) Physical Therapy Treatment Note PT-OP-A Visit Information Start: 12/03/22 10:44 Freq: Status: Active Protocol: Document 12/07/22 11:18 ED (Rec: 12/07/22 11:24 ED [id number]) Out-Patient Physical Therapy Visit Information Visit Information Visit Type Treatment Note Visit Note 2 Visit Start Time 10:45 Visit Stop Time 11:15 Visit Number 2 PT-OP-B Current Condition Start: 12/03/22 10:44 Freq: Status: Active Protocol: Document 12/03/22 10:44 ED (Rec: 12/03/22 11:35 ED [id number]) Current Condition History of Current Condition Onset Date October 2022 History of Current Condition Pt states that sometime in September that she was really busy one weekend and was using wheelbarrow a lot and has had lingering pain/soreness since then. She used the wheelbarrow whlie it was behind her so both her shoulders were in an extended position for a majority of the time she was working. She notes that the L is probably worse than the R. She states that her ROM is limited. She points towards the anterior portion of her shoulder and slightly down her bicep. She states she has a gym membership but she doesn't go. Additionally, she has 3# dumbbells at home that she can utilize. PT-OP-C Subjective Start: 12/03/22 10:44 Freq: Status: Active Protocol: Document 12/07/22 11:18 ED (Rec: 12/07/22 11:24 ED [id number]) OP-PT Subjective Patient Comments Patient Comments Pt states that she performed her HEP over the weekend and has no questions on it. Denies any pain during or after performing her HEP. PT-OP-K Range of Motion Start: 12/03/22 10:44 Freq: Status: Active Protocol: Document 12/03/22 10:44 ED (Rec: 12/03/22 11:35 ED [id number]) Shoulder Goniometric Range of Motion Shoulder Right Active Flexion 135 Abduction 125 Internal Rotation Behind Back (text) above belt line (hesitant to perform) Left Active Flexion 145 Abduction 130 Internal Rotation Behind Back (text) above belt line (hesitant to perform) PT-OP-Q Treatments Start: 12/03/22 10:44 Freq: Status: Active Protocol: Document 12/07/22 11:18 ED (Rec: 12/07/22 11:24 ED [id number]) Therapeutic Exercises Sidelying Exercises ER Sidelying Exercise Name s/l ER Side bilateral Equipment Used 2# Reps/Minutes 3x15 Standing Exercises triceps Standing Exercise Name cable tricep extension Resistance L1 Equipment Used cable Reps/Minutes 2x15 row Side bilateral Equipment Used L3 Reps/Minutes 3x15 wall slides Standing Exercise Name PB wall rolls Side bilateral Reps/Minutes 2x20 scaption raise Side bilateral Resistance 2# ; 1# Reps/Minutes 2x15 ; 60'' hold Other Exercises plank Other Exercise Name modified plank protraction/ retraction Reps/Minutes 2x10 [address] way Comments plinth plantigrade PT-OP-T Assessment and Plan Start: 12/03/22 10:44 Freq: Status: Active Protocol: Document 12/07/22 11:18 ED (Rec: 12/07/22 11:24 ED [id number]) Physical Therapy Assessment Assessment Summary Assessment Pt tolerated treatment well and had complaints of pain or discomfort during or after exercises. Exercises were selected to help improve ROM and loading capacity of shoulder girdle tissues. PT able to advance her external rotation exercises to s/l ER instea d of ER isometric against a wall.
--- NOTE | 2022-12-09 10:42 | PT.OTN ---
Current Diagnoses Pain in right shoulder (12/09/22) Pain in left shoulder (12/09/22) Physical Therapy Treatment Note PT-OP-A Visit Information Start: 12/03/22 10:44 Freq: Status: Active Protocol: Document 12/09/22 10:38 ED (Rec: 12/09/22 10:42 ED [id number]) Out-Patient Physical Therapy Visit Information Visit Information Visit Type Treatment Note Visit Note 3 Visit Start Time 10:00 Visit Stop Time 10:40 Visit Number 3 PT-OP-B Current Condition Start: 12/03/22 10:44 Freq: Status: Active Protocol: Document 12/03/22 10:44 ED (Rec: 12/03/22 11:35 ED [id number]) Current Condition History of Current Condition Onset Date October 2022 History of Current Condition Pt states that sometime in September that she was really busy one weekend and was using wheelbarrow a lot and has had lingering pain/soreness since then. She used the wheelbarrow whlie it was behind her so both her shoulders were in an extended position for a majority of the time she was working. She notes that the L is probably worse than the R. She states that her ROM is limited. She points towards the anterior portion of her shoulder and slightly down her bicep. She states she has a gym membership but she doesn't go. Additionally, she has 3# dumbbells at home that she can utilize. PT-OP-C Subjective Start: 12/03/22 10:44 Freq: Status: Active Protocol: Document 12/09/22 10:38 ED (Rec: 12/09/22 10:42 ED [id number]) OP-PT Subjective Patient Comments Patient Comments Pt notes her shouders have been feeling good. Denies any increases in pain or discomfort following last PT session. PT-OP-K Range of Motion Start: 12/03/22 10:44 Freq: Status: Active Protocol: Document 12/03/22 10:44 ED (Rec: 12/03/22 11:35 ED [id number]) Shoulder Goniometric Range of Motion Shoulder Right Active Flexion 135 Abduction 125 Internal Rotation Behind Back (text) above belt line (hesitant to perform) Left Active Flexion 145 Abduction 130 Internal Rotation Behind Back (text) above belt line (hesitant to perform) PT-OP-Q Treatments Start: 12/03/22 10:44 Freq: Status: Active Protocol: Document 12/09/22 10:38 ED (Rec: 12/09/22 10:42 ED [id number]) Therapeutic Exercises Sidelying Exercises open book Reps/Minutes x10 each way Sitting Exercises pulleys Reps/Minutes x2' Comments shoulder flexion & abduction Standing Exercises SAPD Resistance L2 Reps/Minutes [id number] ER Standing Exercise Name ER walkouts Side bilateral Resistance OTB Reps/Minutes 2x10 scaption raise Side bilateral Resistance 2# Reps/Minutes 2x15 Other Exercises plank Other Exercise Name modified plank protraction/ retraction Reps/Minutes 2x[address] Comments plinth plantigrade PT-OP-T Assessment and Plan Start: 12/03/22 10:44 Freq: Status: Active Protocol: Document 12/09/22 10:38 ED (Rec: 12/09/22 10:42 ED [id number]) Physical Therapy Assessment Assessment Summary Assessment Pt did well during treatment today. Incorporated new movements such as SAPD, open books, and glenohumeral extended bicep curls. Pt reported fatigue during bicep curls but otherwise had no complaints during movements.
--- NOTE | 2022-12-22 10:35 | PT.OTN ---
Addendum entered and electronically signed by Inez Hutchison PTA 12/22/22 15:12: Pt has a foam roller and wants to review some past ex if helpful to continue laying on it. Original Note: Addendum entered and electronically signed by Inez Hutchison PTA 12/22/22 15:10: Extra time spent on ed of anatomy and posture, shld mechanics to be aware of for alignment to allow GH jt better positioning for loaded work with less stressors, better understanding and postural corrections with there ex with report muscle tiring and not pain. Cues for proper set up/form when needed. Original Note: Current Diagnoses Pain in right shoulder (12/22/22) Pain in left shoulder (12/22/22) Physical Therapy Treatment Note PT-OP-A Visit Information Start: 12/03/22 10:44 Freq: Status: Active Protocol: Document 12/22/22 09:46 SP (Rec: 12/22/22 10:45 SP [id number]) Out-Patient Physical Therapy Visit Information Visit Information Visit Type Treatment Note Visit Note 08/16 Visit Start Time 09:46 Visit Stop Time 10:35 Total Visit Minutes 49 Visit Number 4 Number of VALUER Visits 1 Evaluation Information Evaluation Date 12/03/22 PT-OP-B Current Condition Start: 12/03/22 10:44 Freq: Status: Active Protocol: Document 12/03/22 10:44 ED (Rec: 12/03/22 11:35 ED [id number]) Current Condition History of Current Condition Onset Date October 2022 History of Current Condition Pt states that sometime in September that she was really busy one weekend and was using wheelbarrow a lot and has had lingering pain/soreness since then. She used the wheelbarrow whlie it was behind her so both her shoulders were in an extended position for a majority of the time she was working. She notes that the L is probably worse than the R. She states that her ROM is limited. She points towards the anterior portion of her shoulder and slightly down her bicep. She states she has a gym membership but she doesn't go. Additionally, she has 3# dumbbells at home that she can utilize. PT-OP-C Subjective Start: 12/03/22 10:44 Freq: Status: Active Protocol: Document 12/22/22 09:46 SP (Rec: 08/16/23 10:45 SP [id number]) OP-PT Subjective Patient Comments Patient Comments Pt reports pain still wakes her ups R >L and reaching back and out side (ABD/ ER) L>R. PT-OP-K Range of Motion Start: 12/03/22 10:44 Freq: Status: Active Protocol: Document 12/03/22 10:44 ED (Rec: 12/03/22 11:35 ED [id number]) Shoulder Goniometric Range of Motion Shoulder Right Active Flexion 135 Abduction 125 Internal Rotation Behind Back (text) above belt line (hesitant to perform) Left Active Flexion 145 Abduction 130 Internal Rotation Behind Back (text) above belt line (hesitant to perform) PT-OP-Q Treatments Start: 12/03/22 10:44 Freq: Status: Active Protocol: Document 12/22/22 09:46 SP (Rec: 12/22/22 10:45 SP [id number]) Therapeutic Exercises Standing Exercises ABD w/ ER Standing Exercise Name added HEP: con IR, eccentric ER (almost 90 deg abd, elbow 90deg flex) Side bilateral Resistance Tb #2 Reps/Minutes 5 reps x2 sets Comments cued and extra time ed inferior GH glide- better no pops/snapping- mus tire SAPD Resistance L2>3 Reps/Minutes 3x15 Comments cued elongation posture, rhomboid fac con/ecc triceps Standing Exercise Name tricep extension Resistance L1>3 (home GTB provided) Equipment Used cable inPT Reps/Minutes 2x15 Comments cued scap set retract/depress, elbow side trunk fac into ext . row Standing Exercise Name HEP reviewed Side bilateral Equipment Used L3 Reps/Minutes 3x15 Comments good form ER Standing Exercise Name ER isometric lateral walkouts Side bilateral Resistance OTB #2 Reps/Minutes 10x 2-3 small steps lateral Comments cued maintain ER hand out front with each step scaption raise Side bilateral Resistance 2# DB in BUE Reps/Minutes 10 x 5 SH Comments good posturing rhomboid fac. Other Exercises self STMs Other Exercise Name Pec, post scap Side bilateral Equipment Used ball wall Comments good feedback massage plank Other Exercise Name modified plank protraction/ retraction Equipment Used hands on raised table Reps/Minutes 2x[address] Comments cued scap proper form, trunk and CS neutral Manual Therapy Treatment Joint Mobilizations scapulothoracic Joint B Direction inferior, posterior Grade II Body Position Sidelying Comments side and stand: manual and ed STMs w/ MWM pec FF/ ER/punch small ranges, UT self application and self ball wall , ed no UT recruitment. PT-OP-T Assessment and Plan Start: 12/03/22 10:44 Freq: Status: Active Protocol: Document 12/22/22 09:46 SP (Rec: 12/22/22 10:45 SP [id number]) Physical Therapy Assessment Goals Three Impairment Pain Short Term Goal (STG) pt will report 25% improvement in shoulder pain. STG Duration 3 weeks Correction Goal (LTG) Pt will report 50% improvement in shoulder pain. LTG Duration 6 weeks Two Impairment ROM Short Term Goal (STG) Pt will demonstrate 150 degrees AROM flexion bilaterally c/o pain. STG Duration 3 weeks Notcher Goal (LTG) Pt will demonstrate 140 degrees AROM abduction bilaterally c/o pain. LTG Duration 6 weeks One Impairment HEP Short Term Goal (STG) Pt will report performing HEP 3x/week. STG Duration 2 weeks. Correction Goal (LTG) Pt will report performing HEP 3x/week. LTG Duration 6 weeks Assessment Summary Assessment Pt responded well to extra time ed for scap, GH jt inferior glide function for stabilization during ther ex and improved added ABD w/ ER AAROM to progress reaching for items out to side/behind her. Better understanding scap during all other HEP this tx painfree. Physical Therapy Plan Frequency and Duration Frequency of Treatment 2x/Week Duration of treatment (weeks) 8 Plan of Care Start Date 12/03/22 Plan of Care End Date 03/03/23 Therapeutic Interventions Therapeutic Interventions Home Exercise Program,Joint Mobilizations,Manual Therapy, Neuromuscular Re-education, Taping,Therapeutic Activities, Therapeutic Exercises Modalities Cold Pack/Ice Massage,Electric Stimulation,Hot Packs, Ultrasound Next Visit Focus/Plan Next Note Type Treatment Note Next Visit Plan REview: abd/IR con/ecc ER added last tx. STMs as needed POC: pulleys, review HEP (wall slides, rows, scaption, ER iso's), modified plank, bicep curl
--- NOTE | 2022-12-24 11:30 | PT.OTN ---
Current Diagnoses Pain in right shoulder (12/24/22) Pain in left shoulder (12/24/22) Physical Therapy Treatment Note PT-OP-A Visit Information Start: 12/03/22 10:44 Freq: Status: Active Protocol: Document 12/24/22 10:44 SP (Rec: 12/24/22 11:40 SP [id number]) Out-Patient Physical Therapy Visit Information Visit Information Visit Type Treatment Note Visit Note 09/15 Visit Start Time 10:45 Visit Stop Time 11:30 Total Visit Minutes 45 Visit Number 5 Number of OWNER SPA DIRECTOR Visits 2 Evaluation Information Evaluation Date 12/03/22 PT-OP-B Current Condition Start: 12/03/22 10:44 Freq: Status: Active Protocol: Document 12/03/22 10:44 ED (Rec: 12/03/22 11:35 ED [id number]) Current Condition History of Current Condition Onset Date October 2022 History of Current Condition Pt states that sometime in September that she was really busy one weekend and was using wheelbarrow a lot and has had lingering pain/soreness since then. She used the wheelbarrow whlie it was behind her so both her shoulders were in an extended position for a majority of the time she was working. She notes that the L is probably worse than the R. She states that her ROM is limited. She points towards the anterior portion of her shoulder and slightly down her bicep. She states she has a gym membership but she doesn't go. Additionally, she has 3# dumbbells at home that she can utilize. PT-OP-C Subjective Start: 12/03/22 10:44 Freq: Status: Active Protocol: Document 12/24/22 10:44 SP (Rec: 12/24/22 11:40 SP [id number]) OP-PT Subjective Patient Comments Patient Comments Pt reports little sore after last tx. Wants to review HEP to surity doing correctly, libertad ABD/ ER was a challenge. PT-OP-K Range of Motion Start: 12/03/22 10:44 Freq: Status: Active Protocol: Document 12/03/22 10:44 ED (Rec: 12/03/22 11:35 ED [id number]) Shoulder Goniometric Range of Motion Shoulder Right Active Flexion 135 Abduction 125 Internal Rotation Behind Back (text) above belt line (hesitant to perform) Left Active Flexion 145 Abduction 130 Internal Rotation Behind Back (text) above belt line (hesitant to perform) PT-OP-Q Treatments Start: 12/03/22 10:44 Freq: Status: Active Protocol: Document 12/24/22 10:44 SP (Rec: 12/24/22 11:40 SP [id number]) Therapeutic Exercises Supine Exercises Resisted UE over foam roller Supine Exercise Name added to HEP- initiated can be more active than just pec stretch- good resp Side bilateral Resistance TB #2 Equipment Used supine along foam roller knees bent Reps/Minutes 5 reps each Comments 1. pec stretch 2. HABD 3. scaption 4. Ws AROM painfree range Sidelying Exercises ABD Sidelying Exercise Name trialed in PT Side left Resistance AROM Reps/Minutes x10 Comments cued scap set & little serratus press away slow pacduring con/ecc ROM- less open book Sidelying Exercise Name HEP reviewed Reps/Minutes x10 each way ER Sidelying Exercise Name s/l ER (checked in during PT) Side bilateral Resistance towel roll under arm Equipment Used 2#> 3#DB Reps/Minutes x10 each resistance Comments cued scap set and allow humeral rotation Standing Exercises ABD w/ ER Standing Exercise Name reviewed HEP: con IR, eccentric ER (almost 90 deg abd, elbow 90deg flex) Side bilateral Resistance Tb #2 Reps/Minutes 5 reps x2 sets Comments cued and extra time ed inferior GH glide- better no pops/snapping- mus tire SAPD Standing Exercise Name HEP reviewed Resistance L2>3 Reps/Minutes 2x15 Comments cued rhomboid fac con/ecc triceps Standing Exercise Name tricep extension (front & 30 deg ER) Resistance L3 TB Equipment Used cable in PT Reps/Minutes 2x20 Comments cued scap set retract/depress, elbow side trunk fac into ext . ER Standing Exercise Name ER isometric lateral walkouts Side bilateral Resistance OTB #2 Reps/Minutes 10x 2-3 small steps lateral Comments cued maintain ER hand out front with each step scaption raise Standing Exercise Name changed to scap retract/raise with elbow flex>ER Side bilateral Resistance 2#> 3# DB in BUE vs *GTB liked better work Reps/Minutes 2x8 reps Comments good posturing rhomboid fac. Manual Therapy Treatment Soft Tissue Mobilization shld Body Location L UT, LS, infrasp, pec Mobilization Type Strumming,Other Comments strumming, MWM w/ scapulo thoracic. Discussed use of theracane but didn't have time haver her demonstrate scap MWM and neck nods/turns proper use and response, next tx. Joint Mobilizations scapulothoracic Joint B Direction inferior, posterior Grade II Body Position Sidelying Comments manual and ed STMs PT-OP-T Assessment and Plan Start: 12/03/22 10:44 Freq: Status: Active Protocol: Document 12/24/22 10:44 SP (Rec: 12/24/22 11:40 SP [id number]) Physical Therapy Assessment Goals Three Impairment Pain Short Term Goal (STG) pt will report 25% improvement in shoulder pain. STG Duration 3 weeks Division Head Goal (LTG) Pt will report 50% improvement in shoulder pain. LTG Duration 6 weeks Two Impairment ROM Short Term Goal (STG) Pt will demonstrate 150 degrees AROM flexion bilaterally c/o pain. STG Duration 3 weeks Division Head Goal (LTG) Pt will demonstrate 140 degrees AROM abduction bilaterally c/o pain. LTG Duration 6 weeks One Impairment HEP Short Term Goal (STG) Pt will report performing HEP 3x/week. STG Duration 2 weeks. Fpc Goal (LTG) Pt will report performing HEP 3x/week. LTG Duration 6 weeks Assessment Summary Assessment Pt improved scap set and slower pacing motions throughout ther ex with tactil cues inferior Prox humerus during abd, scaption less pinching and good muscle tiring, libertad TB over foam roller and TB abd/ ER to allow back into this motion for ADLs. Physical Therapy Plan Frequency and Duration Frequency of Treatment 2x/Week Duration of treatment (weeks) 8 Plan of Care Start Date 12/03/22 Plan of Care End Date 03/03/23 Therapeutic Interventions Therapeutic Interventions Home Exercise Program,Joint Mobilizations,Manual Therapy, Neuromuscular Re-education, Taping,Therapeutic Activities, Therapeutic Exercises Modalities Cold Pack/Ice Massage,Electric Stimulation,Hot Packs, Ultrasound Next Visit Focus/Plan Next Note Type Treatment Note Next Visit Plan REview: abd/IR con/ecc ER added last tx. STMs as needed POC: pulleys, review HEP (wall slides, rows, scaption, ER iso's), modified plank, bicep curl
--- NOTE | 2022-12-30 11:27 | PT.OTN ---
Current Diagnoses Pain in right shoulder (12/30/22) Pain in left shoulder (12/30/22) Physical Therapy Treatment Note PT-OP-A Visit Information Start: 12/03/22 10:44 Freq: Status: Active Protocol: Document 12/30/22 11:17 ED (Rec: 12/30/22 11:27 ED [id number]) Out-Patient Physical Therapy Visit Information Visit Information Visit Type Treatment Note Visit Note 10/16 Visit Start Time 10:30 Visit Stop Time 11:15 Total Visit Minutes 45 Visit Number 6 Number of PRINTING ENGINEER Visits 0 PT-OP-B Current Condition Start: 12/03/22 10:44 Freq: Status: Active Protocol: Document 12/03/22 10:44 ED (Rec: 12/03/22 11:35 ED [id number]) Current Condition History of Current Condition Onset Date October 2022 History of Current Condition Pt states that sometime in September that she was really busy one weekend and was using wheelbarrow a lot and has had lingering pain/soreness since then. She used the wheel[employer]row whlie it was behind her so both her shoulders were in an extended position for a majority of the time she was working. She notes that the L is probably worse than the R. She states that her ROM is limited. She points towards the anterior portion of her shoulder and slightly down her bicep. She states she has a gym membership but she doesn't go. Additionally, she has 3# dumbbells at home that she can utilize. PT-OP-C Subjective Start: 12/03/22 10:44 Freq: Status: Active Protocol: Document 12/30/22 11:17 ED (Rec: 12/30/22 11:27 ED [id number]) OP-PT Subjective Patient Comments Patient Comments Pt states she feels like she can reduce her frequency to 1x /week. States her shoulder is a little better since starting . Is noticing less frequent night pains but still having them. Patient Questionnaires Quick Dash- Upper Extremity Quick Dash UE Score 25.0 / 100 = 25.0 % Quick Dash UE Impairment 20 to 39% Impaired (Score 20- 39) PT-OP-K Range of Motion Start: 12/03/22 10:44 Freq: Status: Active Protocol: Document 12/30/22 11:17 ED (Rec: 12/30/22 11:27 ED [id number]) Shoulder Goniometric Range of Motion Shoulder Right Active Testing Position Standing Flexion 140 Comments no pain @ end range Left Active Testing Position Standing Flexion 150 Comments no pain at end range PT-OP-Q Treatments Start: 12/03/22 10:44 Freq: Status: Active Protocol: Document 12/30/22 11:17 ED (Rec: 12/30/22 11:27 ED [id number]) Therapeutic Exercises Sidelying Exercises ABD Sidelying Exercise Name trialed in PT Side left Resistance AROM Reps/Minutes x10 Comments cued scap set & little serratus press away slow pacduring con/ecc ROM- less Sitting Exercises pulleys Reps/Minutes x2' Comments shoulder flexion & abduction Standing Exercises bicep curl Resistance 5# Reps/Minutes [id number] SA wall slides c/ foam roller Standing Exercise Name serratus wall slides Side bilateral Resistance foam roller Equipment Used [id number] row Side bilateral Equipment Used L3 Reps/Minutes 3x15 wall slides Standing Exercise Name PB wall rolls Side bilateral Reps/Minutes 2x20 ER Standing Exercise Name ER isometric lateral walkouts Side bilateral Resistance OTB #2 Reps/Minutes 10x 2-3 small steps lateral Comments cued maintain ER hand out front with each step scaption raise Side bilateral Resistance 2-3# Reps/Minutes 3x06-94 Comments good posturing rhomboid fac. PT-OP-T Assessment and Plan Start: 12/03/22 10:44 Freq: Status: Active Protocol: Document 12/30/22 11:17 ED (Rec: 12/30/22 11:27 ED [id number]) Physical Therapy Assessment Goals Three Impairment Pain Short Term Goal (STG) pt will report 25% improvement in shoulder pain. STG Duration 3 weeks Flexo Press Operator Goal (LTG) Pt will report 50% improvement in shoulder pain. LTG Duration 6 weeks Two Impairment ROM Short Term Goal (STG) Pt will demonstrate 150 degrees AROM flexion bilaterally c/o pain. STG Duration 3 weeks - 50% MET Detention Goal (LTG) Pt will demonstrate 140 degrees AROM abduction bilaterally c/o pain. LTG Duration 6 weeks One Impairment HEP Short Term Goal (STG) Pt will report performing HEP 3x/week. STG Duration 2 weeks - MET Detention Goal (LTG) Pt will report performing HEP 3x/week. LTG Duration 6 weeks Progress Towards Goals Progress Towards Goals Progressing Toward Goals Assessment Summary Assessment Pt had about 5-10 degree improvement in active shoulder flexion since initiating physical therapy. Pt denied any pain at end range. PT had patient perform QuickDash questionnaire which showed an improvement from 40-59% disability to 20-39% disability. Pt overall demonstrating improved pain free ROM but continues to have some proximal bicep pain in both shoulders. She was able to perform all exercises today c/o requiring modifications. Physical Therapy Plan Frequency and Duration Frequency of Treatment 2x/Week Duration of treatment (weeks) 8 Plan of Care Start Date 12/03/22 Plan of Care End Date 03/03/23 Next Visit Focus/Plan Next Note Type Treatment Note Next Visit Plan REview: abd/IR con/ecc ER added last tx. STMs as needed POC: pulleys, review HEP (wall slides, rows, scaption, ER iso's), modified plank, bicep curl
--- NOTE | 2023-01-06 11:33 | PT.OTN ---
Current Diagnoses Pain in right shoulder (01/06/23) Pain in left shoulder (01/06/23) Physical Therapy Treatment Note PT-OP-A Visit Information Start: 12/03/22 10:44 Freq: Status: Active Protocol: Document 01/06/23 11:28 ED (Rec: 01/06/23 11:33 ED [id number]) Out-Patient Physical Therapy Visit Information Visit Information Visit Type Treatment Note Visit Note 11/15 Visit Start Time 10:45 Visit Stop Time 11:25 Total Visit Minutes 40 Visit Number 7 Number of QUALITY CONSULTANT Visits 0 PT-OP-B Current Condition Start: 12/03/22 10:44 Freq: Status: Active Protocol: Document 12/03/22 10:44 ED (Rec: 12/03/22 11:35 ED [id number]) Current Condition History of Current Condition Onset Date October 2022 History of Current Condition Pt states that sometime in September that she was really busy one weekend and was using wheelbarrow a lot and has had lingering pain/soreness since then. She used the [employer]row whlie it was behind her so both her shoulders were in an extended position for a majority of the time she was working. She notes that the L is probably worse than the R. She states that her ROM is limited. She points towards the anterior portion of her shoulder and slightly down her bicep. She states she has a gym membership but she doesn't go. Additionally, she has 3# dumbbells at home that she can utilize. PT-OP-C Subjective Start: 12/03/22 10:44 Freq: Status: Active Protocol: Document 01/06/23 11:28 ED (Rec: 01/06/23 11:33 ED [id number]) OP-PT Subjective Patient Comments Patient Comments Pt states that her L shoulder is feeling much better since she started PT. the left shoulder can still be painful at times; patient states that it hurts pretty randomly. PT-OP-K Range of Motion Start: 12/03/22 10:44 Freq: Status: Active Protocol: Document 12/30/22 11:17 ED (Rec: 12/30/22 11:27 ED [id number]) Shoulder Goniometric Range of Motion Shoulder Right Active Testing Position Standing Flexion 140 Comments no pain @ end range Left Active Testing Position Standing Flexion 150 Comments no pain at end range PT-OP-Q Treatments Start: 12/03/22 10:44 Freq: Status: Active Protocol: Document 01/06/23 11:28 ED (Rec: 01/06/23 11:33 ED [id number]) Cardio Equipment Upper Body Ergometer (UBE) Duration (Minutes) 5 Therapeutic Exercises Supine Exercises rhythmic stabilization Reps/Minutes x30'' Sidelying Exercises ER Sidelying Exercise Name s/l ER Side bilateral Resistance towel roll under arm Equipment Used #DB Reps/Minutes x10 each resistance Comments cued scap set and allow humeral rotation Standing Exercises bicep curl Standing Exercise Name arm elevated bicep curl Resistance blue band Reps/Minutes [id number] SAPD Standing Exercise Name HEP reviewed Resistance L2>3 Reps/Minutes 2x15 Comments cued rhomboid fac con/ecc triceps Standing Exercise Name tricep extension (front & 30 deg ER) Resistance L3 TB Equipment Used cable in PT Reps/Minutes 2x20 Comments cued scap set retract/depress, elbow side trunk fac into ext . wall slides Standing Exercise Name PB wall rolls Side bilateral Reps/Minutes 2x20 scaption raise Side bilateral Resistance 2-3# Reps/Minutes x1' isometric hold Comments thumbs up position PT-OP-T Assessment and Plan Start: 12/03/22 10:44 Freq: Status: Active Protocol: Document 01/06/23 11:28 ED (Rec: 01/06/23 11:33 ED [id number]) Physical Therapy Assessment Goals Three Impairment Pain Short Term Goal (STG) pt will report 25% improvement in shoulder pain. STG Duration 3 weeks Retirement Goal (LTG) Pt will report 50% improvement in shoulder pain. LTG Duration 6 weeks Two Impairment ROM Short Term Goal (STG) Pt will demonstrate 150 degrees AROM flexion bilaterally c/o pain. STG Duration 3 weeks - 50% MET Retirement Goal (LTG) Pt will demonstrate 140 degrees AROM abduction bilaterally c/o pain. LTG Duration 6 weeks One Impairment HEP Short Term Goal (STG) Pt will report performing HEP 3x/week. STG Duration 2 weeks - MET Museum Assistant Goal (LTG) Pt will report performing HEP 3x/week. LTG Duration 6 weeks Assessment Summary Assessment PT added arm elevated bicep curl and high rows to patient HEP. She was able to perform them today c/o pain. PT plans on slowly adding more proximal bicep loading to patient HEP. PT asked patient to bring in her sheets of exercises in order to go through them and make a more campaign marketing specialist plan. Physical Therapy Plan Frequency and Duration Frequency of Treatment 2x/Week Duration of treatment (weeks) 8 Plan of Care Start Date 12/03/22 Plan of Care End Date 03/03/23 Next Visit Focus/Plan Next Note Type Treatment Note Next Visit Plan POC: pulleys, FR wall slides, RS, chest press, SAPD, extended bicep curl, fwd raise HEP (wall slides, rows, scaption, ER iso's), modified plank, bicep curl
--- NOTE | 2023-01-12 10:45 | PT.OTN ---
Current Diagnoses Pain in right shoulder (01/12/23) Pain in left shoulder (01/12/23) Physical Therapy Treatment Note PT-OP-A Visit Information Start: 12/03/22 10:44 Freq: Status: Active Protocol: Document 01/12/23 09:59 SP (Rec: 01/12/23 10:49 SP [id number]) Out-Patient Physical Therapy Visit Information Visit Information Visit Type Treatment Note Visit Note 12/16 Visit Start Time 10:00 Visit Stop Time 10:45 Total Visit Minutes 45 Visit Number 8 Number of TRANSPLANT RN Visits 1 Evaluation Information Evaluation Date 12/03/22 PT-OP-B Current Condition Start: 12/03/22 10:44 Freq: Status: Active Protocol: Document 12/03/22 10:44 ED (Rec: 12/03/22 11:35 ED [id number]) Current Condition History of Current Condition Onset Date October 2022 History of Current Condition Pt states that sometime in September that she was really busy one weekend and was using wheelbarrow a lot and has had lingering pain/soreness since then. She used the wheelbarrow whlie it was behind her so both her shoulders were in an extended position for a majority of the time she was working. She notes that the L is probably worse than the R. She states that her ROM is limited. She points towards the anterior portion of her shoulder and slightly down her bicep. She states she has a gym membership but she doesn't go. Additionally, she has 3# dumbbells at home that she can utilize. PT-OP-C Subjective Start: 12/03/22 10:44 Freq: Status: Active Protocol: Document 01/12/23 09:59 SP (Rec: 01/12/23 10:49 SP [id number]) OP-PT Subjective Patient Comments Patient Comments Pt reports L shld not feeling as good as R, is there anything I shouldn't do with my L shld? She reports did some yard work over the weekend: hand held pruning, pulled plants. PT-OP-K Range of Motion Start: 12/03/22 10:44 Freq: Status: Active Protocol: Document 12/30/22 11:17 ED (Rec: 12/30/22 11:27 ED [id number]) Shoulder Goniometric Range of Motion Shoulder Right Active Testing Position Standing Flexion 140 Comments no pain @ end range Left Active Testing Position Standing Flexion 150 Comments no pain at end range PT-OP-Q Treatments Start: 12/03/22 10:44 Freq: Status: Active Protocol: Document 01/12/23 09:59 SP (Rec: 01/12/23 10:49 SP [id number]) Cardio Equipment Upper Body Ergometer (UBE) Duration (Minutes) 8 RPM 60 Seat Position 11 Height 4.5 Other 1 min f/b alternate Therapeutic Exercises Sitting Exercises pulleys Sitting Exercise Name FF, Scaption, ABD Reps/Minutes x1 min each Comments cued slower pacing muscular mobility more fluid Standing Exercises resisted UE rail walking Standing Exercise Name initiated in PT 01/12 Side bilateral Resistance blue TB Reps/Minutes 15 ft 1 lap Comments good feedback scapular muscular tiring. Challenge coordinate BLE/BUE bicep curl Standing Exercise Name 90 deg FF: bicep curl Resistance blue band anchored shld height indoor Reps/Minutes [id number] Comments cued square up shld facing door ABD w/ ER Standing Exercise Name reviewed HEP: good mus fac/ painfree Side bilateral Resistance Tb #2> 4 blue Reps/Minutes x10 each UE Comments occ cues for maintain 90 deg ABD con IR/ ecc ER SAPD Standing Exercise Name HEP reviewed Side bilateral Resistance L3> L4 blue Reps/Minutes x20 reps Comments cued elbow straight, LT & rhomboid fac ecc wall slides Standing Exercise Name 1. PB wall rolls over head 2. OH press 3# DB Side bilateral Resistance 55 cm tball facing wall Equipment Used facing wall Reps/Minutes 2x20 tball x20 OH press Comments cued stride stance neutral pelvis support back, form DB over shld scaption raise Standing Exercise Name thumbs up position Side bilateral Resistance 3# DB individual Reps/Minutes x1' isometric hold Comments good postural/arm/scap corrections self Other Exercises plank Other Exercise Name knees 30 s, feet 10 sec Equipment Used floor Comments cued TA lift, glut fac, chin tuck PT-OP-T Assessment and Plan Start: 12/03/22 10:44 Freq: Status: Active Protocol: Document 01/12/23 09:59 SP (Rec: 01/12/23 10:49 SP [id number]) Physical Therapy Assessment Goals Three Impairment Pain Short Term Goal (STG) pt will report 25% improvement in shoulder pain. STG Duration 3 weeks Jail Goal (LTG) Pt will report 50% improvement in shoulder pain. LTG Duration 6 weeks Two Impairment ROM Short Term Goal (STG) Pt will demonstrate 150 degrees AROM flexion bilaterally c/o pain. STG Duration 3 weeks - 50% MET Jail Goal (LTG) Pt will demonstrate 140 degrees AROM abduction bilaterally c/o pain. LTG Duration 6 weeks One Impairment HEP Short Term Goal (STG) Pt will report performing HEP 3x/week. STG Duration 2 weeks - MET Trouble Locater Goal (LTG) Pt will report performing HEP 3x/week. LTG Duration 6 weeks Assessment Summary Assessment Pt good feedback response muscular tiring, painfree throughout tx. Pt reported better understanding how set up elevated bicep curl and scapular positioning so not compensate recruit UT. Physical Therapy Plan Frequency and Duration Frequency of Treatment 2x/Week Duration of treatment (weeks) 8 Plan of Care Start Date 12/03/22 Plan of Care End Date 03/03/23 Therapeutic Interventions Therapeutic Interventions Home Exercise Program,Joint Mobilizations,Manual Therapy, Neuromuscular Re-education, Taping,Therapeutic Activities, Therapeutic Exercises Modalities Cold Pack/Ice Massage,Electric Stimulation,Hot Packs, Ultrasound Next Visit Focus/Plan Next Note Type Treatment Note Next Visit Plan POC: pulleys, FR wall slides, RS, chest press, SAPD, extended bicep curl, fwd raise , revisit resisted UE wall/ rail walking. HEP (wall slides, rows, scaption, ER iso's), modified plank, bicep curl
--- NOTE | 2023-02-03 10:40 | PT.OTN ---
Current Diagnoses Pain in right shoulder (02/03/23) Pain in left shoulder (02/03/23) Physical Therapy Treatment Note PT-OP-A Visit Information Start: 12/03/22 10:44 Freq: Status: Active Protocol: Document 02/03/23 10:34 ED (Rec: 02/03/23 10:39 ED [id number]) Out-Patient Physical Therapy Visit Information Visit Information Visit Type Discharge Summary Visit Note 01/16 Visit Start Time 10:00 Visit Stop Time 10:30 Total Visit Minutes 30 Visit Number 9 Number of COMPUTATIONAL CHEMIST Visits 0 PT-OP-B Current Condition Start: 12/03/22 10:44 Freq: Status: Active Protocol: Document 12/03/22 10:44 ED (Rec: 12/03/22 11:35 ED [id number]) Current Condition History of Current Condition Onset Date October 2022 History of Current Condition Pt states that sometime in September that she was really busy one weekend and was using wheelbarrow a lot and has had lingering pain/soreness since then. She used the wheelbarrow whlie it was behind her so both her shoulders were in an extended position for a majority of the time she was working. She notes that the L is probably worse than the R. She states that her ROM is limited. She points towards the anterior portion of her shoulder and slightly down her bicep. She states she has a gym membership but she doesn't go. Additionally, she has 3# dumbbells at home that she can utilize. PT-OP-C Subjective Start: 12/03/22 10:44 Freq: Status: Active Protocol: Document 02/03/23 10:34 ED (Rec: 02/03/23 10:39 ED [id number]) OP-PT Subjective Patient Comments Patient Comments Pt states today will be her last PT session. She notes that her shoulders are remarkably better than they were when she first injured herself and since she started PT. She would like to continue her rehab independently at home. Patient Questionnaires Quick Dash- Upper Extremity Quick Dash UE Score 15.9 / 100 = 15.9 % Quick Dash UE Impairment 1 to 19% Impaired (Score 1-19) PT-OP-K Range of Motion Start: 12/03/22 10:44 Freq: Status: Active Protocol: Document 12/30/22 11:17 ED (Rec: 12/30/22 11:27 ED [id number]) Shoulder Goniometric Range of Motion Shoulder Right Active Testing Position Standing Flexion 140 Comments no pain @ end range Left Active Testing Position Standing Flexion 150 Comments no pain at end range PT-OP-Q Treatments Start: 12/03/22 10:44 Freq: Status: Active Protocol: Document 02/03/23 10:34 ED (Rec: 02/03/23 10:39 ED [id number]) Therapeutic Exercises Standing Exercises bicep curl Standing Exercise Name 90 deg FF: bicep curl Resistance blue band anchored shld height indoor Reps/Minutes [id number] Comments cued square up shld facing door SAPD Standing Exercise Name HEP reviewed Side bilateral Resistance L3> L4 blue Reps/Minutes x20 reps Comments cued elbow straight, LT & rhomboid fac ecc triceps Standing Exercise Name tricep extension (front & 30 deg ER) Resistance L3 TB Equipment Used cable in PT Reps/Minutes 2x20 Comments cued scap set retract/depress, elbow side trunk fac into ext . Other Exercises plank Other Exercise Name knees 30 s, feet 10 sec Equipment Used floor Comments cued TA lift, glut fac, chin tuck PT-OP-T Assessment and Plan Start: 12/03/22 10:44 Freq: Status: Active Protocol: Document 02/03/23 10:34 ED (Rec: 02/03/23 10:39 ED [id number]) Physical Therapy Assessment Goals Three Impairment Pain Short Term Goal (STG) pt will report 25% improvement in shoulder pain. STG Duration 3 weeks -MET Correction Goal (LTG) Pt will report 50% improvement in shoulder pain. LTG Duration 6 weeks -MET Two Impairment ROM Short Term Goal (STG) Pt will demonstrate 150 degrees AROM flexion bilaterally c/o pain. STG Duration 3 weeks - 50% MET Quality Assurance Intern Goal (LTG) Pt will demonstrate 140 degrees AROM abduction bilaterally c/o pain. LTG Duration 6 weeks One Impairment HEP Short Term Goal (STG) Pt will report performing HEP 3x/week. STG Duration 2 weeks - MET Quality Assurance Intern Goal (LTG) Pt will report performing HEP 3x/week. LTG Duration 6 weeks -MET Assessment Summary Assessment Pt to be discharged from PT at this time per patient request . She noted significant improvement since starting physical therapy. Her QuickDASH score improved from 50/100 to 16/100; MCID is 9-11 points. She has improved ROM and functionality of her UEs. She continues to endorse some tenderness in her anterior L shoulder but typically only when in particular positions. PT and patient went over her HEP today and added a few additional ones including : SAPD, elevated bicep curl, decline bicep curl, push up plus, and serratus punches. Physical Therapy Plan Discharge Physical Therapy Discharge Reasons Patient Request
== END 2023-02-04 09:35 | disposition home or self-care (01) ==
LOC: PHYS 10:00
PROVIDERS: Family Provider Registered Nurse Diabetes Educator; PCP Registered Nurse Diabetes Educator; Referring Provider Registered Nurse Diabetes Educator; Visit Provider Registered Nurse Diabetes Educator
DX: M25.511 Pain in right shoulder (principal); M25.512 Pain in left shoulder
CPT/HCPCS: 97110; 97140; 97161

== ENCOUNTER 2023-02-14 07:23 | Day surgery (SDC) | payer OTHER, SELFPAY ==
--- NOTE | 2023-02-14 | PATH_ITS ---
[facility] Accession Number: [id number] No. of containers..01 Tissue . 01 Material submitted: . esophagus - MID ESOPHAGUS . 01 Diagnosis: A. Mid Esophagus, Biopsy: Squamous mucosa within normal limits. No evidence of intestinal metaplasia or dysplasia. No evidence of increased intraepithelial eosinophils. [facility] 02/17/2023 1545 Local . 01 Electronically signed: . Brigette Salazar MD, Pathologist NPI- [id number] . 01 Gross description: . MID ESOPHAGUS: Received in formalin is 1 fragment(s) of blum, soft tissue measuring 0.3 x 0.2 x 0.1 cm submitted entirely in 1 cassette(s) /AAY 02/15/2023 0452 Local . 01 Microscopic: . PAS stain is negative for fungal organisms with appropriately staining external controls. Deeper levels also examined. . 01 Pathologist provided ICD-10: R13.10 . 01 CPT . 402254, [id number] Specimen Comment: A courtesy copy of this report has been sent to [phone] Performed at: 01 [facility] [address] [place] [address], [place], [place] [id number] MD Gerardo Kelly MD Phone: [phone]
[2023-02-14 07:31] VITALS: BP 141/79; PULSE 73; RESP 16; TEMP 36.1; O2SAT 96; BMI 38.2
[2023-02-14] MEDS: LACTATED RINGERS 1,000 ML 42 ML IV (07:42)
--- NOTE | 2023-02-14 08:01 | P.HP_ITS ---
History of Present Illness History of Present Illness Date Patient Seen: 02/14/23 Time Patient Seen: 08:01 Chief complaint: SDC Narrative: I reviewed my note from June. (the assessment and plan). I explained that the computer malfunction has limited my access to the bulk of that particular note. Patient is still having frequent heartburn but takes omeprazole only 3-4 times per week. She is dysphagia to pills but not food. She is not had any further episodes of rectal bleeding. There is a family history of colon cancer. [facility] Medical History Dyslipidemia Essential tremor Chronic GERD Rheumatoid arthritis (~2004) Positive PPD (~1979) Chicken pox (~1987) Painful menstrual periods Hip pain, chronic Hypothyroidism (~2005) Impaired fasting blood sugar Sinusitis Dry scalp Arthritis Anxiety (1999) Depression (1994) Fractures (1971) Abnormal Pap smear of cervix (2013) Retinal detachment (2015) Hypothyroidism (2014) HPV in female (2013) Surgical History Anesthesia Status post appendectomy (2011) Status post dilation and curettage (1982) History of tonsillectomy Family History Father Age: 87 Hypertension Hyperlipidemia Sister Age: 60 Mental health problem Mother No problems noted. Brother Hyperlipidemia Grandmother Cancer Grandfather Cancer Grandmother Cancer Social History household members: none Smoking Status: Former smoker Tobacco: How many years used: 4 second hand exposure: No alcohol intake: current substance use type: does not use Meds Home Medications and Allergies Home Medications Medication Instructions Recorded Confirmed Type cholecalciferol (vitamin D3) 25 25 mcg PO DAILY 02/12/21 02/14/23 History mcg (1,000 unit) tablet ASHTYN 03/16/22 02/14/23 History trazodone 50 mg tablet See Rx Instructions PO BEDTIME #45 03/29/22 02/14/23 Rx tabs levothyroxine 50 mcg tablet 50 mcg PO DAILY #90 tabs 07/21/22 02/14/23 Rx ferrous sulfate 325 mg (65 mg 325 mg PO DAILY 08/25/22 02/14/23 History iron) tablet (Feosol) Allergies Allergy/AdvReac Type Severity Reaction Status Date / Time tetracycline [TETRACYCLINE] Allergy Unknown Patient Verified 12/28/22 14:41 was child when it happened venlafaxine [From EFFEXOR] AdvReac Severe suicidal Verified 12/28/22 14:41 thoughts Review of Systems Review of Systems ROS: Yes All systems reviewed with the patient and are negative except as otherwise documented Exam Vital Signs (past 8 hours): - 02/14/23 07:31 Temperature 97 F L Pulse Rate 73 Respiratory Rate 16 Blood Pressure 141/79 H Pulse Oximetry 96 Oxygen Delivery Method Room Air Oxygen Delivery Method Room Air Const General: cooperative HENMT Head: normal to inspection Eyes General: appearance normal, both eyes and all related structures Neck Neck: normal visual inspection Chest Chest: normal inspection of the chest Resp Effort & Inspection: normal respiratory effort Cardio Rate: regular rate GI Inspection: normal to inspection Skin General: no rashes or lesions noted Neuro General: patient alert and patient awake Extrem General: normal to inspection and no pedal edema Psych Appearance: grossly normal Assessment & Plan Assessment & Plan narrative: 62-year-old female with symptoms of dysphagia, heartburn, and a single episode of rectal bleeding. There is a family history of colon cancer. EGD and colonoscopy are pursued today.
--- NOTE | 2023-02-14 08:03 | PM.PREOP ---
Pre-operative Note Interval Note History & Physical reviewed/Exam performed by Physician: Yes Changes to H&P: No ASA Class (for procedural sedation): II
--- NOTE | 2023-02-14 09:28 | PM.OP.EC ---
Operative Date/Time/Diagnoses Date of procedure: 02/14/23 Time of procedure: 09:29 Pre-op diagnosis: GERD dysphagia rectal bleeding family history of colon cancer Post-op diagnosis: same Procedure & Clinicians Study performed: EGD with biopsies and a colonoscopy Same procedure as scheduled: Yes Indications: GERD dysphagia rectal bleeding family history of colon cancer Surgeon: Chandra Nava Procedure Notes SCOAP/Timeout: Done Procedure in detail: After the risks and benefits were explained, written and verbal informed consent was obtained. The patient was brought into the procedure room and placed into the left lateral decubitus position. Please see anesthesia notes for sedation details. The scope was introduced into the mouth through the bite block and advanced under direct visualization to the 2nd portion of the duodenum. The scope was slowly withdrawn carefully examining the mucosa for any defects or lesions. Retroflexed views were accomplished in the stomach. The stomach was decompressed, the scope was then removed from the patient who tolerated the procedure well. During the exam she had a nasal trumpet placed prior to scope insertion and this seemed to induce some mild epistaxis. This was cleared with suction. The patient was then turned around. A digital rectal examination was accomplished. The scope was introduced into the rectum and advanced under direct visualization to the level of the cecum as identified by the appendiceal orifice and ileocecal valve. The scope was slowly withdrawn to carefully examine the mucosa for any defects or lesions. Multiple direct views were made through the dentate line for exclusion of pathology. The colon was decompressed the scope removed from the patient who tolerated the procedure well. Adult colonoscope Bowel prep adequate Scope withdrawal time: 7 minutes Sedation minutes: 36 Complications: none Impression: 1. Duodenum: No significant pathology from the bulb through to the 2nd portion. 2. Stomach: No outlet obstruction no mass lesions no ulcers. No significant mucosal pathology throughout including retroflexed views of the LES. 3. Esophagus: The squamocolumnar junction correlated with the top of the gastric folds. GEJ was at 37 cm from the incisors. Patient had LA grade a erosive esophagitis. I took biopsies from the midesophagus to exclude eosinophilic esophagitis. No obstructing pathology identified throughout. Small sliding hiatal hernia. 4. Colon: Patient had a tortuous colon. Navigation was challenging. She had grade 1-2 internal hemorrhoids. No mass lesions no significant polyps identified throughout. Endoscopic diagnosis 1. Small sliding hiatal hernia 2. LA grade a erosive esophagitis 3. Otherwise visually unremarkable EGD 4. Grade 1-2 hemorrhoids 5. Tortuous colon 6. Otherwise visually unremarkable colonoscopy Post-procedure Plan for aftercare: 1. Await histopathology. 2. Continue daily anti-reflux therapy. 3. Repeat colonoscopy 5 years. Disposition: PACU
[2023-02-14 09:34] VITALS: BP 122/66; PULSE 71; RESP 13; TEMP 36.1; O2SAT 97
[2023-02-14 09:39] VITALS: BP 117/72; PULSE 64; RESP 11; O2SAT 97
[2023-02-14 09:46] VITALS: BP 117/70; PULSE 62; RESP 15; O2SAT 98
[2023-02-14 09:50] VITALS: BP 123/60; PULSE 59; RESP 12; TEMP 36.1; O2SAT 99
[2023-02-14 10:12] VITALS: BP 113/77; PULSE 62; RESP 14; TEMP 36.5; O2SAT 100
== END 2023-02-14 10:23 | disposition home or self-care (01) ==
PROVIDERS: Family Provider Registered Nurse Diabetes Educator; PCP Registered Nurse Diabetes Educator; Referring Provider Internal Medicine Gastroenterology; Visit Provider Internal Medicine Gastroenterology
PROC: 0DJ08ZZ Inspection of Upper Intestinal Tract, Via Natural or Artificial Opening Endoscopic (ICD-10-PCS; CPT 43235; principal; 2023-02-14 08:30)
PROC: 0DJD8ZZ Inspection of Lower Intestinal Tract, Via Natural or Artificial Opening Endoscopic (ICD-10-PCS; CPT 45378; 2023-02-14 08:30)
DX: K62.5 Hemorrhage of anus and rectum (principal); Z80.0 Family history of malignant neoplasm of digestive organs; R13.10 Dysphagia, unspecified; K64.1 Second degree hemorrhoids; K21.00 Gastro-esophageal reflux disease with esophagitis, without bleeding; K44.9 Diaphragmatic hernia without obstruction or gangrene
CPT/HCPCS: 45378; 43239; J2704

== ENCOUNTER → 2023-08-08 17:00 | Outpatient (CLI) | payer OTHER, SELFPAY ==
--- NOTE | 2023-08-08 | DI.MG.S_ITS ---
BILATERAL DIGITAL SCREENING MAMMOGRAM 3D/2D WITH CAD: 08/08/2023 CLINICAL: Routine screening. Family history of breast cancer. Comparison is made to exams dated: 07/16/2022 mammogram, 07/04/2021 mammogram, and 06/16/2020 mammogram - [facility]. There are scattered areas of fibroglandular density in both breasts (category b / 25%-50% glandular tissue). Current study was also evaluated with a Computer Aided Detection (CAD) system. There are benign calcifications in both breasts. No significant masses, calcifications, or other findings are seen in either breast. There has been no significant interval change. IMPRESSION: BENIGN There is no mammographic evidence of malignancy. A 1 year screening mammogram is recommended. Based on the Tyrer Cuzick model (a risk assessment model) the patient's lifetime risk is 5.9% and her 10 year risk is 2.7%. According to the ACR, ACS, and NCCN guidelines, an annual breast MRI exam along with mammogram is recommended if the patient's lifetime risk is 20% or greater. This exam was interpreted at Station ID: [id number]. NOTE: For mammograms, a report in lay terms will be sent to the patient. Approximately 15% of breast malignancies will not be visualized mammographically. In the management of a palpable breast mass, a negative mammogram must not discourage biopsy of a clinically suspicious lesion. Electronically Signed By: Sarkis mehta/alyce:08/09/2023 11:54:29 letter sent: Normal Exam ACR BI-RADS Category 2: Benign Finding(s) 3342F
== END ==
PROVIDERS: Family Provider Registered Nurse Diabetes Educator; PCP Registered Nurse Diabetes Educator; Referring Provider Registered Nurse Diabetes Educator; Visit Provider Registered Nurse Diabetes Educator
DX: Z12.31 Encounter for screening mammogram for malignant neoplasm of breast (principal); Z80.3 Family history of malignant neoplasm of breast; R92.323 Mammographic fibroglandular density, bilateral breasts
CPT/HCPCS: 77063; 77067

== ENCOUNTER → 2023-09-05 10:07 | Outpatient (CLI) | payer OTHER, SELFPAY ==
[2023-09-05 10:58] LABS: Hematocrit 37.8 % (36-46); Hemoglobin 12.8 g/dL (12.0-16.0); Mean Corpuscular HGB Conc 33.9 % (30-36); Mean Corpuscular Hemoglobin 31.2 PG (26-34); Platelet Count 265 X10^3/uL (150-400); Red Blood Cell Count 4.11 X10^6/uL (4.0-5.2); White Blood Cell Count 7.2 X10^3/uL (4.5-11.0)
[2023-09-05 11:05] LABS: Hemoglobin A1C% w Est Avg Glu 6.1 % (4.0-6.0)
[2023-09-05 11:21] LABS: Alanine Aminotransferase 28 IU/L (<35); Albumin 4.4 g/dL (3.5-5.0); Albumin Globulin Ratio 1.6 (1.0-2.8); Alkaline Phosphatase 85 U/L (38-126); Aspartate Aminotransferase 34 IU/L (14-36); BUN Creatinine Ratio 30.4 (6-22); Bilirubin Total 0.6 mg/dL (0.2-1.3); Blood Urea Nitrogen 21 mg/dL (7-17); Calcium 9.2 mg/dL (8.4-10.2); Carbon Dioxide 32 mmol/L (22-32); Chloride 105 mmol/L (98-107); Estimated Glomerular Filt Rate > 60 mL/min (>60); Globulin 2.8 g/dL (1.7-4.1); Glucose 106 mg/dL (80-110); HEMOLYSIS < 15 (0-50); Potassium 4.9 mmol/L (3.4-5.1); Sodium 139 mmol/L (137-145); Total Protein 7.2 g/dL (6.3-8.2)
[2023-09-05 11:46] LABS: TSH w/ Reflex to FT4 0.99 uIU/mL (0.47-4.68)
== END ==
PROVIDERS: Family Provider Registered Nurse Diabetes Educator; PCP Registered Nurse Diabetes Educator; Referring Provider Registered Nurse Diabetes Educator; Visit Provider Registered Nurse Diabetes Educator
DX: Z51.81 Encounter for therapeutic drug level monitoring (principal); R73.01 Impaired fasting glucose; E03.9 Hypothyroidism, unspecified; E78.5 Hyperlipidemia, unspecified
CPT/HCPCS: 36415; 80053; 83036; 84443; 85027

== ENCOUNTER → 2023-11-28 08:35 | Outpatient (CLI) | payer OTHER, SELFPAY ==
[2023-11-28 09:32] LABS: Alanine Aminotransferase 26 IU/L (<35); Albumin 4.2 g/dL (3.5-5.0); Albumin Globulin Ratio 1.8 (1.0-2.8); Alkaline Phosphatase 60 U/L (38-126); Aspartate Aminotransferase 29 IU/L (14-36); Bilirubin Total 0.7 mg/dL (0.2-1.3); Bilirubin Unconjugated 0.4 mg/dL (0.0-1.1); Cholesterol 147 mg/dL (140-199); Globulin 2.4 g/dL (1.7-4.1); HDL Cholesterol 72 mg/dL (40-60); HEMOLYSIS < 15 (0-50); LDL Cholesterol Calculated 56 mg/dL (<100); Total Protein 6.6 g/dL (6.3-8.2); Triglycerides 95 mg/dL (35-150)
== END ==
PROVIDERS: Family Provider Registered Nurse Diabetes Educator; PCP Registered Nurse Diabetes Educator; Referring Provider Registered Nurse Diabetes Educator; Visit Provider Registered Nurse Diabetes Educator
DX: E78.5 Hyperlipidemia, unspecified (principal); Z51.81 Encounter for therapeutic drug level monitoring; Z01.83 Encounter for blood typing
CPT/HCPCS: 36415; 80061; 80076; 86900; 86901

== ENCOUNTER → 2024-09-04 08:52 | Outpatient (CLI) | payer BC, SELFPAY ==
[2024-09-04 09:37] LABS: Hematocrit 38.7 % (36-46); Hemoglobin 13.3 g/dL (12.0-16.0); Mean Corpuscular HGB Conc 34.5 % (30-36); Mean Corpuscular Hemoglobin 31.6 PG (26-34); Mean Corpuscular Volume 91.6 fL (80-100); Platelet Count 289 X10^3/uL (150-400); Red Blood Cell Count 4.23 X10^6/uL (4.0-5.2); White Blood Cell Count 5.5 X10^3/uL (4.5-11.0)
[2024-09-04 09:50] LABS: Hemoglobin A1C% w Est Avg Glu 5.4 % (4.0-6.0)
[2024-09-04 10:14] LABS: HEMOLYSIS < 15 (0-50); Iron 82 ug/dL (37-170)
[2024-09-04 10:20] LABS: Alanine Aminotransferase 24 IU/L (<35); Albumin 4.2 g/dL (3.5-5.0); Albumin Globulin Ratio 1.8 (1.0-2.8); Alkaline Phosphatase 63 U/L (38-126); Aspartate Aminotransferase 32 IU/L (14-36); BUN Creatinine Ratio 16.7 (6-22); Bilirubin Total 0.6 mg/dL (0.2-1.3); Blood Urea Nitrogen 15 mg/dL (7-17); Calcium 9.1 mg/dL (8.4-10.2); Carbon Dioxide 31 mmol/L (22-32); Chloride 102 mmol/L (98-107); Cholesterol 184 mg/dL (140-199); Estimated Glomerular Filt Rate > 60 mL/min (>60); Globulin 2.4 g/dL (1.7-4.1); Glucose 103 mg/dL (70-99); HDL Cholesterol 71 mg/dL (40-60); HEMOLYSIS < 15 (0-50); LDL Cholesterol Calculated 93 mg/dL (<100); Potassium 4.4 mmol/L (3.4-5.1); Sodium 140 mmol/L (137-145); Total Protein 6.6 g/dL (6.3-8.2); Triglycerides 100 mg/dL (35-150)
[2024-09-04 10:25] LABS: Percent Iron Saturation 33 % (15-50); Total Iron Binding Capacity 247 ug/dL (265-497); Transferrin 198 mg/dL (206-381)
[2024-09-04 10:46] LABS: TSH w/ Reflex to FT4 0.78 uIU/mL (0.47-4.68)
[2024-09-04 10:56] LABS: Ferritin 57 ng/mL (11-264)
== END ==
PROVIDERS: Family Provider Registered Nurse Diabetes Educator; PCP Registered Nurse Diabetes Educator; Referring Provider Registered Nurse Diabetes Educator; Visit Provider Registered Nurse Diabetes Educator
DX: E03.9 Hypothyroidism, unspecified (principal); R73.01 Impaired fasting glucose; E78.5 Hyperlipidemia, unspecified; G47.30 Sleep apnea, unspecified; G25.81 Restless legs syndrome
CPT/HCPCS: 36415; 80053; 80061; 82728; 83036; 83540; 83550; 84443; 85027

== ENCOUNTER → 2024-12-08 11:24 | Outpatient (CLI) | payer MEDICARE, SELFPAY ==
--- NOTE | 2024-12-08 11:26 | DI.MG.S_ITS ---
MM screening mammo BI: 12/08/2024. BI-RADS: 1 CLINICAL: 64-year old female for bilateral screening mammogram. Tyrer-Cuzick lifetime risk of 4.4%. No personal or first-degree family history of breast cancer. PRIOR EXAMS 08/08/2023, 07/16/2022, 07/04/2021, 06/16/2020. MAMMOGRAPHY TECHNIQUE: 2D and 3D (tomosynthesis) digital mammographic views obtained, with additional images as needed for full coverage. Current study was also evaluated with a Computer Aided Detection (CAD) system. DENSITY B. There are scattered areas of fibroglandular density. MAMMOGRAPHY FINDINGS Bilateral: No suspicious mass, asymmetry, microcalcification, or other abnormality seen. No significant change from comparison. IMPRESSION: * No evidence of malignancy. RECOMMENDATIONS Bilateral * Annual screening mammography. OVERALL ASSESSMENT CATEGORY BI-RADS-1: Negative. The [employer] recommends annual screening mammography beginning at age 40 for women with average risk of breast cancer. ELECTRONICALLY SIGNED: Sarkis Parham M.D. on 12/10/2024 at 10:58:54 AM PT Interpreting Station ID: [id number]
== END ==
LOC: MAMMO 11:25
PROVIDERS: Family Provider Registered Nurse Diabetes Educator; PCP Registered Nurse Diabetes Educator; Referring Provider Registered Nurse Diabetes Educator; Visit Provider Registered Nurse Diabetes Educator
DX: Z12.31 Encounter for screening mammogram for malignant neoplasm of breast (principal)
CPT/HCPCS: 77063; 77067

== ENCOUNTER → 2024-12-17 10:24 | Outpatient (CLI) | payer MEDICARE, SELFPAY ==
[2024-12-19 22:07] LABS: Codfish Allergy IgE < 0.10 kU/L (Class 0); Hazelnut IgE 0.75 kU/L (Class II); Salmon Allergy IgE < 0.10 kU/L (Class 0); Scallop Allergy IgE < 0.10 kU/L (Class 0); Sesame seed Allergy IgE < 0.10 kU/L (Class 0); Tuna Allergy IgE < 0.10 kU/L (Class 0); Wheat Allergy IgE < 0.10 kU/L (Class 0)
== END ==
PROVIDERS: PCP Registered Nurse Diabetes Educator; Referring Provider Registered Nurse Diabetes Educator; Visit Provider Registered Nurse Diabetes Educator
DX: Z91.012 Allergy to eggs (principal); Z91.018 Allergy to other foods; L29.9 Pruritus, unspecified
CPT/HCPCS: 36415; 86003

== ENCOUNTER → 2025-04-01 11:57 | Outpatient (CLI) | payer MEDICARE, OTHER, SELFPAY ==
--- NOTE | 2025-04-01 11:59 | DI.RAD.S_ITS ---
PROCEDURE: XR DEXA AXIAL SKELETON INDICATIONS: eval, at risk for osteoporosis COMPARISON: [facility], CR, XR DEXA AXIAL SKELETON, 07/03/2018, 14:47. FINDINGS: Lumbar Spine: Bone mineral density 0.95 to g/cm2, T score -0.9. There is interval 1.9% decrease in total lumbar spine bone mineral density. Left Femoral Neck: Bone mineral density 0.832 g/cm2, T score -0.2. There is interval 2.5% decrease in left femoral neck bone mineral density. Left Hip: Bone mineral density 0.971 g/cm2, T score 0.2. There is interval 0.8% decrease in left total hip bone mineral density. Fracture Risk Calculation (when applicable): 10-year fracture risk of a major osteoporotic fracture 13 percent and of a hip fracture 0.6 percent. (T score greater or equal to -1.0 to: NORMAL) (T score from -1.1 to -2.4: OSTEOPENIA) (T score less than or equal to -2.5: OSTEOPOROSIS) IMPRESSION: Normal bone mineral density. Follow-up guidelines as follows: Osteoporosis: Consider a repeat DEXA and Vertebral Fracture Assessment (VFA) exam in 2 years or sooner if medically necessary, to reassess this patient's status. Osteopenia: Consider a repeat DEXA in 2-3 years to reassess this patient's status, or if there is a new clinical indication. Normal: Consider a repeat DEXA in 5 years or sooner, or if there is a new clinical indication. All treatment decisions require clinical judgment and consideration of individual patient factors, including patient preferences, comorbidities, previous drug use, risk factors not captured in the FRAX model (e.g., frailty, falls, vitamin D deficiency, increased bone turnover, interval significant decline in bone density ) and possible under- or over-estimation of fracture risk by FRAX. In addition, the NOF Guide recommends that FDA-approved medical therapies be considered in postmenopausal women and men age >= 50 years with a: * Hip or vertebral (clinical or morphometric) fracture * T-score of <=-2.5 at the spine or hip * Ten-year fracture probability by FRAX of >= 3% for hip fracture or >=20% for major osteoporotic fracture. Dictated by: Napoleon Bhagat M.D. on 04/01/2025 at 14:02 Approved by: Napoleon Bhagat M.D. on 04/01/2025 at 14:03
== END ==
LOC: RAD 11:59
PROVIDERS: PCP Registered Nurse Diabetes Educator; Referring Provider Registered Nurse Diabetes Educator; Visit Provider Registered Nurse Diabetes Educator
DX: Z00.00 Encounter for general adult medical examination without abnormal findings (principal); Z78.0 Asymptomatic menopausal state
CPT/HCPCS: 77080